=== PATIENT | male | born 2000 | race Caucasian/White ===

== ENCOUNTER 2020-09-06 02:27 | Emergency (ER) | payer OTHER, SELFPAY ==
[2020-09-06 02:33] VITALS: BP 124/57; PULSE 79; RESP 18; TEMP 36.2; O2SAT 100
--- NOTE | 2020-09-06 02:35 | ED.NAVMDI ---
HPI - Nausea/Vomiting/Diarrhea General Chief complaint: Nausea/Vomiting/Diarrhea Stated complaint: vomiting Time Seen by Provider: 09/06/20 02:34 History of Present Illness HPI Narrative: Previously healthy 19 yo male presents to the ED for nausea and vomiting. He reports acute nausea and vomiting starting about 3 hours ago. This was later accompanied by profuse watery diarrhea and mild cramping. No fever. Related Data Allergies Allergy/AdvReac Type Severity Reaction Status Date / Time No Known Allergies Allergy Verified 09/06/20 02:43 Review of Systems Review of Systems: All systems reviewed & are unremarkable except as noted in HPI and below Constitutional: Constitutional: Denies chills and Denies fever(s) ENT: Reports dizziness Cardiovascular: Cardiovascular: Denies chest pain Respiratory: Respiratory: Denies dyspnea Gastrointestinal: Gastrointestinal: Reports as per HPI Neurologic: Denies confusion PMFSH Social History Social History Smoking status: Never smoker Exam Const: General: healthy appearing, no acute distress and alert Nutritional Appearance: well nourished Orientation/consciousness: patient oriented x3 HENMT: Head: normal to inspection Resp: Effort & Inspection: normal respiratory effort Auscultation: clear to auscultation bilaterally Cardio: Rate: regular rate Rhythm: regular rhythm GI: Inspection: non-distended GI Palp: Yes Soft to palpation and No Tenderness to palpation present (GI) Auscultation: Hyperactive bowel sounds present Skin: General skin exam: normal color Neuro: General: patient oriented x3 and moves all extremities Speech: normal speech Extrem: General: normal to inspection Course Vital Signs Vital signs: Vital Signs Temperature 36.2 C L 09/06/20 02:33 Pulse Rate 79 09/06/20 02:33 Respiratory Rate 18 09/06/20 02:33 Blood Pressure 124/57 L 09/06/20 02:33 Pulse Oximetry 100 09/06/20 02:33 Temperature 36.2 C L 09/06/20 02:33 Pulse Rate 80 09/06/20 03:46 Respiratory Rate 16 09/06/20 03:46 Blood Pressure 133/69 09/06/20 03:46 Pulse Oximetry 100 09/06/20 03:46 MDM - Nausea/Vomiting/Diarrhea MDM Narrative Medical decision making narrative: Feeling better and tolerating water PO. Differential Diagnosis Differential diagnosis: Likely gastroenteritis and dehydration Medical Records Attestation: I reviewed the patient's medical records. Lab Data Attestation: I reviewed the patient's lab results. Result diagrams: 09/06/20 03:02 09/06/20 03:02 Labs: Lab Results 09/06/20 09/06/20 Range/Units 03:02 03:02 WBC 10.2 H (4.5-10.0) K/mm3 RBC 5.37 (4.6-6.20) M/mm3 Hgb 16.3 (14.0-18.0) g/dL Hct 46.6 (42.0-52.0) % MCV 86.8 (80-100) fl MCH 30.4 (26-34) pg MCHC 35.0 (32-36) g/dl RDW 11.7 (11.5-14.5) % Plt Count 185 (150-375) k/mm3 MPV 9.9 (7.4-10.4) fl Immature Gran % (Auto) 0.3 (0-0.5) % Neut % (Auto) 90.9 H (45.5-73.1) % Lymph % (Auto) 3.1 L (18.3-44.2) % [place] % (Auto) 4.6 (2.6-8.5) % Eos % (Auto) 0.7 (0-4.4) % Baso % (Auto) 0.4 (0.2-1.2) % Lymph # (Auto) 0.32 L (0.9-3.2) K/mm3 [place] # (Auto) 0.5 (0.1-0.6) K/mm3 Eos # (Auto) 0.1 (0-0.3) K/mm3 Baso # (Auto) 0.0 (0.0-0.1) K/mm3 Abs Immat Gran (auto) 0.03 (0.00-0.031) K/mm3 Absolute Neuts (auto) 9.2 H (1.3-6.7) K/mm3 Absolute Nucleated RBC 0.0 (0.0-0.012) K/mm3 Nucleated RBC % 0.0 (0.0-0.2) % Sodium 138 (137-145) mmol/L Potassium 3.9 (3.4-5.0) mmol/L Chloride 106 (98-107) mmol/L Carbon Dioxide 25 (22-30) mmol/L Anion Gap 7 L (8-16) mmol/L BUN 22 H (9-20) mg/dL Creatinine 1.00 (0.7-1.3) mg/dL Estim Creat Clear Calc 123 ml/min Estimated GFR > 60 (59 - ) Glucose 131 H (75-110) mg/dL Calcium 9.3 (8.4-10.2) mg/dL Total Bilirubin 0.8 (0.2-1.3) mg/dL AST
[2020-09-06] MEDS: ONDANSETRON INJ 4 MG/2 ML VIAL IV PUSH (03:01)
[2020-09-06] MEDS: SODIUM CHLORIDE 0.9% IV 2,000 ML 999 ML IV CONT (03:01)
[2020-09-06] MEDS: diphenhydrAMINE HCl INJ 50 MG/ML VIAL 25 MG IV PUSH (03:01)
[2020-09-06 03:10] LABS: Basophils Percent Auto 0.4 % (0.2-1.2); Eosinophils Absolute Auto 0.1 K/mm3 (0-0.3); Eosinophils Percent Auto 0.7 % (0-4.4); Hematocrit 46.6 % (42.0-52.0); Hemoglobin 16.3 g/dL (14.0-18.0); Immature Granulocyte Absolute 0.03 K/mm3 (0.00-0.031); Immature Granulocyte Percent A 0.3 % (0-0.5); Lymphocytes Absolute Auto 0.32 K/mm3 (0.9-3.2); Lymphocytes Percent Auto 3.1 % (18.3-44.2); Mean Corpuscular Hemoglobin 30.4 pg (26-34); Mean Corpuscular Volume 86.8 fl (80-100); Mean Platelet Volume 9.9 fl (7.4-10.4); Monocytes Absolute Auto 0.5 K/mm3 (0.1-0.6); Monocytes Percent Auto 4.6 % (2.6-8.5); Neutrophils Absolute Auto 9.2 K/mm3 (1.3-6.7); Neutrophils Percent Auto 90.9 % (45.5-73.1); Platelet Count Result 185 k/mm3 (150-375); Red Blood Count 5.37 M/mm3 (4.6-6.20); Red Cell Distribution Width 11.7 % (11.5-14.5); White Blood Count 10.2 K/mm3 (4.5-10.0)
[2020-09-06 03:40] LABS: Alanine Aminotransferase 53 U/L (4-50); Albumin Level 4.7 g/dL (3.5-5.1); Alkaline Phosphatase 77 U/L (38-126); Anion Gap 7 mmol/L (8-16); Aspartate Amino Transferase 104 U/L (17-59); Bilirubin,Total 0.8 mg/dL (0.2-1.3); Blood Urea Nitrogen 22 mg/dL (9-20); Calcium 9.3 mg/dL (8.4-10.2); Carbon Dioxide 25 mmol/L (22-30); Chloride 106 mmol/L (98-107); Estimated CRCL calculation 123 ml/min; Estimated Glomerular Filt Rate > 60; Glucose 131 mg/dL (75-110); Lipase 55 U/L (23-300); Potassium 3.9 mmol/L (3.4-5.0); Sodium 138 mmol/L (137-145)
[2020-09-06 03:46] VITALS: BP 133/69; PULSE 80; RESP 16; O2SAT 100
[2020-09-06 04:23] VITALS: BP 137/44; PULSE 69; RESP 20; O2SAT 100
== END 2020-09-06 04:25 | disposition home or self-care (01) ==
PROVIDERS: Emergency Provider Emergency Medicine; PCP Family Medicine
DX: K52.9 Noninfective gastroenteritis and colitis, unspecified (principal)
CPT/HCPCS: 36415; 80053; 83690; 85025; 96361; 96374; 96375; 99284; J1200; J2405; J7030

== ENCOUNTER 2020-12-01 13:49 | Emergency (ER) | payer OTHER, SELFPAY ==
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
[2020-12-01 13:58] VITALS: BP 146/76; PULSE 70; RESP 16; TEMP 37.3; O2SAT 99
--- NOTE | 2020-12-01 15:22 | PC.NURSE ---
Pt in radiology.
[2020-12-01] MEDS: KETOROLAC 30 MG/ML VIAL (*BKC) IV PUSH (15:30)
[2020-12-01] MEDS: LORazepam INJ (*CRX) 2 MG/ML VIAL 1 MG IV PUSH (15:31)
[2020-12-01 16:21] VITALS: PULSE 62; RESP 15; O2SAT 98
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
[2020-12-01 18:13] VITALS: BP 136/68; PULSE 60; RESP 15; O2SAT 99
== END 2020-12-01 18:15 | disposition home or self-care (01) ==
PROVIDERS: Emergency Provider Emergency Medicine
DX: M54.2 Cervicalgia (principal); R51.9 Headache, unspecified; V43.52XA Car driver injured in collision with other type car in traffic accident, initial encounter
CPT/HCPCS: 70450; 71046; 72125; 96374; 96375; 99284; J1885; J2060; L0140

== ENCOUNTER 2021-06-26 15:45 | Emergency (ER) | payer OTHER, SELFPAY ==
[2021-06-26 15:53] VITALS: BP 145/82; PULSE 86; RESP 18; TEMP 36.7; O2SAT 98
--- NOTE | 2021-06-26 15:53 | ED.URI ---
HPI - URI/Sore Throat General Chief Complaint: Upper Respiratory Infection Stated Complaint: Congestion, Ear ache and cough Time Seen by Provider: 06/26/21 16:02 Source: patient and RN notes reviewed Mode of arrival: ambulatory Limitations: no limitations History of Present Illness HPI Narrative: 20-year-old male presents with concern for cough, shortness of breath with exertion, ear pain, fatigue, head congestion. Reports symptoms started 4 days ago. He denies any history of asthma or other breathing problems. He reports trying DayQuil and NyQuil which offer relief of nasal congestion. He denies any trouble breathing, MD elicited complaint: cough, rhinorrhea and nasal congestion Related Data Home Medications Medication Instructions Recorded Confirmed No Home Medications 12/01/20 06/26/21 Allergies Allergy/AdvReac Type Severity Reaction Status Date / Time No Known Allergies Allergy Verified 06/26/21 15:55 Review of Systems Review of Systems: CONSTITUTIONAL: Reports malaise, fatigue. Denies chills, sweats, or fever. EYES: Denies visual changes, redness, or discharge. ENT: Reports rhinorrhea, congestion, otalgia CARDIOVASCULAR: Denies chest pain, palpitations, or edema. RESPIRATORY: Reports cough, exertional dyspnea. GASTROINTESTINAL: Denies abdominal pain, nausea, vomiting, diarrhea SKIN: Denies rash or itching. MUSCULOSKELETAL: Reports myalgia. NEUROLOGIC: Denies headache. All systems reviewed & are unremarkable except as noted in HPI and below PMFSH Social History Social History Smoking status: Never smoker Comments At time of signature, agree with nursing past medical, surgical, social and family history. There is no relevant family history pertinent to the presenting complaint Exam Narrative: GENERAL: Well-appearing, well-nourished, and in no acute distress. HEAD: Normocephalic EYES: PERRLA, conjunctivae clear ENT: Nares clear, clear discharge. Mucous membranes moist. TM pearly moreno with dull light reflex bilaterally; no tragal tenderness. Oropharynx not erythematous without lesions. Tonsils not enlarged and without exudate, no drooling, no hoarseness, no trismus, uvula midline. NECK: Supple. No lymphadenopathy CHEST: Scattered wheeze, otherwise clear to auscultation, breath sounds equal. No rhonchi, rales, or stridor. No respiratory distress, speaks in full sentences. HEART: Regular rate and rhythm. No murmur heard. SKIN: Warm, dry, no rash. NEURO: Alert and oriented x3. PSYCH: Normal mood and affect Course Course Emergency Course: Patient is aware of diagnosis, understands and agrees to treatment plan. Anticipatory guidance given. Patient agrees to follow-up as directed and is aware of reasons to seek care at the emergency department. Portions of this record may have been created with voice recognition software Level of Care: Express Care Visit Vital Signs Vital signs: Reviewed. MDM - URI/Sore Throat MDM Narrative Medical decision making narrative: Differential diagnosis considered: [place] virus, strep pharyngitis, allergic rhinitis, upper respiratory tract infection, sinusitis, rhinosinusitis, nasopharyngitis. viral pharyngitis, otitis media, otitis externa, pneumonia, bronchitis, viral cough syndrome, viral syndrome, and influenza. Exam findings show no acute concerns or changes; patient is non-toxic appearing and is in no distress. Patient is appropriate for outpatient treatment and follow-up. Lab Data Attestation: I reviewed the patient's lab results. Critical Care Time Critical Care Time Critical Care Time: No Discharge Plan Discharge Clinical Impression: Bronchitis Patient Disposition: Home, Self-Care Condition: Stable Instructions: Acute Bronchitis (ED) Additional Instructions: Viral illness may last between 7-21 days; antibiotics do not cure viral illness and are NOT recommended at this time. Recommend antihistami
== END 2021-06-26 16:41 | disposition home or self-care (01) ==
PROVIDERS: Emergency Provider Nurse Practitioner
DX: J40 Bronchitis, not specified as acute or chronic (principal); Z20.822 Contact with and (suspected) exposure to COVID-19
CPT/HCPCS: 87426; 87804; 99213; C9803; G0463

== ENCOUNTER 2021-12-28 12:58 | Emergency (ER) | payer OTHER, SELFPAY ==
[2021-12-28 13:03] VITALS: BP 144/84; PULSE 91; RESP 20; TEMP 36.2; O2SAT 99
--- NOTE | 2021-12-28 13:25 | ED.EAR ---
HPI - Ear Problem General Chief complaint: Ear Stated complaint: ear pain Time Seen by Provider: 12/28/21 13:00 History of Present Illness HPI Narrative: 21-year-old male presents to the emergency room today for complaints of right ear pain. He is also having a headache on the right side as well sinus congestion, drainage and cough. He has had upper respiratory symptoms for the past week. The ear pain started today. He does report being on antibiotics recently. No fever or chills. No shortness of breath or wheezing. No nausea vomiting or diarrhea. Related Data Allergies Allergy/AdvReac Type Severity Reaction Status Date / Time No Known Allergies Allergy Verified 06/26/21 15:55 Review of Systems Review of Systems: CONSTITUTIONAL: Denies fever, chills, or sweats. EYES: mild blurred vision right eye ENT: As per HPI CARDIOVASCULAR: Denies chest pain, palpitations, or edema. RESPIRATORY: Denies cough or dyspnea. GASTROINTESTINAL: Denies abdominal pain, nausea, vomiting, or diarrhea. GENITOURINARY: Denies dysuria or hematuria. SKIN: Denies rash or itching. MUSCULOSKELETAL: Denies back pain, joint pain, or myalgia. NEUROLOGIC: Denies headache, numbness, dizziness, or weakness. PSYCHIATRIC: Denies anxiety or depression. [facility] Social History Social History Smoking status: Never smoker Exam Narrative: GENERAL: Well-appearing, well-nourished, and in no acute distress. HEAD: Normocephalic, atraumatic. EYES: PERRLA and EOMI. ENT: Bilateral TMs erythematous and bulging. Effusion noted bilaterally. Clear nasal drainage with congestion noted. Oropharynx appears normal, no erythema or exudates. NECK: Supple. No adenopathy or masses. No carotid bruits or JVD CHEST: Clear to auscultation. No respiratory distress. No wheezes rales or rhonchi HEART: Regular rate and rhythm. No murmur heard. Normal peripheral pulses. EXTREMITIES: Normal range of motion. No edema. SKIN: Warm, dry, no rash. NEURO: No focal deficits. Alert and oriented x3. PSYCH: Normal mood and affect. Course Vital Signs Vital signs: Vital Signs Temperature 36.2 C L 12/28/21 13:03 Pulse Rate 91 12/28/21 13:03 Respiratory Rate 12/28/21 13:03 Blood Pressure 144/84 H 12/28/21 13:03 Pulse Oximetry 99 12/28/21 13:03 Temperature 36.2 C L 12/28/21 13:03 Pulse Rate 91 12/28/21 13:03 Respiratory Rate 12/28/21 13:03 Blood Pressure 144/84 H 12/28/21 13:03 Pulse Oximetry 99 12/28/21 13:03 Medical Decision Making Vital Signs Vital Signs: Vital Signs Temperature 36.2 C L 12/28/21 13:03 Pulse Rate 91 12/28/21 13:03 Respiratory Rate 12/28/21 13:03 Blood Pressure 144/84 H 12/28/21 13:03 Pulse Oximetry 99 12/28/21 13:03 Temperature 36.2 C L 12/28/21 13:03 Pulse Rate 91 12/28/21 13:03 Respiratory Rate 12/28/21 13:03 Blood Pressure 144/84 H 12/28/21 13:03 Pulse Oximetry 99 12/28/21 13:03 Discharge Plan Discharge Clinical Impression: Acute bacterial sinusitis Otitis media Qualifiers: Otitis media type: suppurative Chronicity: acute Laterality: bilateral Recurrence: not specified as recurrent Spontaneous tympanic membrane rupture: without spontaneous rupture Qualified Code(s): H66.003 - Acute suppurative otitis media without spontaneous rupture of ear drum, bilateral Patient Disposition: Home, Self-Care Condition: Stable Instructions: Antibiotic Form, Ear Infection (ED) Additional Instructions: Use [id number] Tylenol or Motrin as needed. Use [id number] decongestants as needed. Take your full course of antibiotics as directed. Follow-up with your primary care provider in 2 to 3 days for recheck. Prescriptions: New amoxicillin-pot clavulanate 875-125 mg tablet 1 tablet PO Q12H 10 Days Qty: 20 0RF ibuprofen 600 mg tablet 600 mg PO TID PRN (Reason: pain) Qty: 30 0RF No Action
[2021-12-28] MEDS: cefTRIAXone 1 GM VIAL IM (13:44)
[2021-12-28] MEDS: KETOROLAC (*BKC) 60 MG/2 ML VIAL IM (13:45)
[2021-12-28] MEDS: LIDOCAINE HCL 1% PF 30 ML VIAL INFILTRATE (13:45)
== END 2021-12-28 14:07 | disposition home or self-care (01) ==
PROVIDERS: Emergency Provider Nurse Practitioner Family
DX: J01.90 Acute sinusitis, unspecified (principal); Z79.51 Long term (current) use of inhaled steroids
CPT/HCPCS: 96372; 99284; J0696; J1885

== ENCOUNTER 2022-04-11 10:38 | Emergency (ER) | payer OTHER, SELFPAY ==
[2022-04-11 10:50] VITALS: BP 133/75; PULSE 95; RESP 16; TEMP 39.1; O2SAT 98
--- NOTE | 2022-04-11 11:20 | ED.URI ---
HPI - URI/Sore Throat General Chief Complaint: Upper Respiratory Infection Stated Complaint: Cold/flu Time Seen by Provider: 04/11/22 11:20 Source: patient and RN notes reviewed Mode of arrival: ambulatory Limitations: no limitations History of Present Illness HPI Narrative: 21-year-old male presented for complaint headache, body aches, sinus pressure/congestion, cough, fatigue, fever/chills. Endorses feeling dizzy at times, decreased appetite and intermittent diarrhea. Temp up to 102.2 last night. Taking several otc meds without change in symptoms. States his girlfriend has similar symptoms and tested positive for covid at home last week. MD elicited complaint: cough Related Data Home Medications Medication Instructions Recorded Confirmed fluoxetine 10 mg capsule 40 mg PO DAILY 04/11/22 04/11/22 Allergies Allergy/AdvReac Type Severity Reaction Status Date / Time No Known Allergies Allergy Verified 04/11/22 11:18 Review of Systems Review of Systems: per HPI [facility] Social History Social History Smoking status: Never smoker Exam Narrative: GENERAL: Ill-appearing, nontoxic HEAD: Normocephalic EYES: PERRLA, conjunctivae clear ENT: Mucous membranes moist. TMs pearly moreno with dull light reflex bilaterally; no tragal tenderness. Oropharynx erythematous tonsils absent, without lesions or exudate, no drooling, no hoarseness, no trismus, uvula midline. No tripod positioning, muffled voice, soft palate or pharyngeal wall bulging NECK: Supple. No lymphadenopathy CHEST: Clear to auscultation, breath sounds equal. No wheezing, rhonchi, rales, or stridor. No respiratory distress, speaks in full sentences. HEART: Regular rate and rhythm. No murmur heard. SKIN: Warm, dry, no rash. NEURO: Alert and oriented x3. PSYCH: Normal mood and affect Course Course Emergency Course: Patient is aware of diagnosis, understands and agrees to treatment plan. Anticipatory guidance given. Patient agrees to follow-up as directed and is aware of reasons to seek care at the emergency department. Portions of this record may have been created with voice recognition software Level of Care: Express Care Visit Vital Signs Vital signs: Vital Signs Temperature 102.4 F H 04/11/22 10:50 Pulse Rate 95 04/11/22 10:50 Respiratory Rate 16 04/11/22 10:50 Blood Pressure 133/75 04/11/22 10:50 Pulse Oximetry 98 04/11/22 10:50 Temperature 100.9 F H 04/11/22 12:15 Pulse Rate 98 04/11/22 12:15 Respiratory Rate 16 04/11/22 12:15 Blood Pressure 133/75 04/11/22 10:50 Pulse Oximetry 99 04/11/22 12:15 Oxygen Delivery Room Air 04/11/22 12:15 reviewed MDM - URI/Sore Throat MDM Narrative Medical decision making narrative: temp rechecked, improved. covid and strep result reviewed with pt Advised supportive measures and signs/symptoms to go to the ER. Pt is appropriate for outpt treatment and f/u. Differential Diagnosis Differential diagnosis: Likely upper respiratory infection, sinusitis and viral infection Lab Data Labs: Lab Results 04/11/22 Range/Units 10:50 POC SARS CoV-2 Ag Negative (Negative) Strep Screen Positive Group A Strep *(Reference Range: Negative)* Discharge Plan Discharge Clinical Impression: Strep pharyngitis Patient Disposition: Home, Self-Care Condition: Stable Instructions: Antibiotic Form, Strep Throat (ED) Additional Instructions: - Take the antibiotic as directed. Fever and sore throat typically resolve within one to three days. Most patients can return to work, after 12 to 24 hours of antibiotic therapy, provided you are fever free and otherwise well. -Eat and drink things that are easy to swallow, like soft foods, cool liquids, tea with honey, or popsicles . -Salt water gargles and/or may use topical anesthetic ( Chloraseptic spray) or lozenges
--- NOTE | 2022-04-11 11:47 | PC.NURSE ---
ADVISED PT TO REMOVE LAYERS OF CLOTHING AND HATS AT THIS TIME.
[2022-04-11 12:15] VITALS: PULSE 98; RESP 16; TEMP 38.3; O2SAT 99
== END 2022-04-11 12:15 | disposition home or self-care (01) ==
PROVIDERS: Emergency Provider Nurse Practitioner Family
DX: J02.0 Streptococcal pharyngitis (principal); Z20.822 Contact with and (suspected) exposure to COVID-19
CPT/HCPCS: 87426; 87880; 99213; C9803; G0463

== ENCOUNTER 2024-08-12 13:39 | Emergency (ER) | payer SELFPAY ==
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
--- NOTE | ~2024-08-12 | CT_ITS ---
EXAMINATION: CT brain wo con DATE: 08/12/2024 14:05 INDICATION: Head injury TECHNIQUE: Computed tomography (CT) of the head was performed without intravenous contrast. Sagittal and coronal reconstructions were performed. The mA was adjusted according to patient size. Iterative reconstruction technique was employed. The dose-length product was 681.00 mGy-cm. COMPARISON: 12/01/2020 FINDINGS: No fracture. No acute intracranial hemorrhage, acute infarction or abnormal extra axial fluid collect ion. Ventricles are normal and symmetric. No mass/mass effect. The orbits, paranasal sinuses and mast oid air cells are normal. IMPRESSION: 1. Normal head CT. No fracture or acute intracranial process. Reviewed, dictated and finalized at location B.
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
[2024-08-12 13:51] VITALS: BP 135/77; PULSE 69; RESP 18; TEMP 36.4; O2SAT 98
--- OUTSIDE RECORDS SUMMARY | 2024-08-12 14:30 | XMS_ITS | Encounter Summary ---
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
--- OUTSIDE RECORDS SUMMARY | 2024-08-12 14:30 | XMS_ITS | Clinical Summary ---
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 Gender Identity Not on file Sexual Orientation Not on file Last Filed Vital Signs Vital Sign Reading Time Taken Comments Blood Pressure 139/76 10/31/2019 5:44 PM CDT Pulse 74 10/31/2019 5:44 PM CDT Temperature 36.4 C (97.5 F) 10/31/2019 5:44 PM CDT Respiratory Rate 18 10/31/2019 5:44 PM CDT Oxygen Saturation 98% 10/31/2019 5:44 PM CDT Inhaled Oxygen Concentration - - Weight 89.4 kg (197 lb 1.5 oz) 10/31/2019 5:44 P M CDT Height 190.5 cm (6' 3 ) 10/31/2019 5:44 PM CDT Body Mass Index 24.63 10/31/2019 5:44 PM CDT Plan of Treatment Health Maintenance Due Date Last Done Comments Annual Physical 2001 HPV Vaccines (1 - Male 3-dos e series) 2013 DTaP, Tdap and Td Vaccines ( 1 - Tdap) 2017 Hepatitis B Vaccines (1 of 3 - 19+ 3-dose series) 2017 COVID-19 Vaccine (2023-2 5 season) 2023 Hepatitis C Completed 05/31/2019 Meningococcal Vaccine Aged Out 10/13/2019 No lisha yunior eligible based on patient's age to complete this topic Meningococcal B Vaccine Aged Out No l onger eligible based on patient's age to complete this topic Pneumococcal Vaccine: Pediat rics (0 to 5 Years) and At-Risk Patients (6 to 49 Years) Aged Out No longer eligi ble based on patient's age to complete this topic RSV Immunizations Under 20 Months Aged Out No longer eligible based on patient's age to complete this topic Procedures Procedure Name Priority Date/Time Associated Diagnosis Comments HEPATITIS PANEL,ACUTE STAT 05/31/2019 3:25 PM TOOL PROCUREMENT COORDINATOR from Last 3 Months or Most Recently Relevant to Health Maintenance Results * HEPATITIS PANEL,ACUTE (05/31/2019 3:25 PM TOOL PROCUREMENT COORDINATOR) HEPATITIS B SURFACE AG NON-REACT GARY NON-REACT GARY 05/31/2019 6:28 PM TOOL PROCUREMENT COORDINATOR [facility] Comment:HBsAg NOT DETECTED. HEP B CORE IGM NON-REACT GARY NON-REACT GARY 05/31/2019 6:28 PM TOOL PROCUREMENT COORDINATOR [facility] Comment: IgM ANTI HBc NOT DETECTED. DOES NOT EXCLUDE THE POSSIBILITY OF EXPOSURE TO OR INFECTION WITH HBV. NO RETEST REQUIRED. HIGH DOSES OF BIOTIN MAY INTERFERE WITH THIS TEST RESULT. CORRELATION TO CLINICAL HISTORY AND PRESENTATION RECOMMENDED. HAV IGM NON-REACT GARY NON-REACT GARY 05/31/2019 6:28 PM TOOL PROCUREMENT COORDINATOR [facility] Comment: IgM ANTI HAV NOT DETECTED. DOES NOT EXCLUDE THE POSSIBILITY OF EXPOSURE TO OR INFECTION WITH HAV. LEVELS OF IgM ANTI HAV MAY BE BELOW THE CUTOFF IN EARLY INFECTION. HEPATITIS C AB NON-REACT GARY NON-REACT GARY 05/31/2019 6:28 PM TOOL PROCUREMENT COORDINATOR [facility] Comment: ANTIBODIES TO HCV NOT DETECTED. DOES NOT EXCLUDE THE POSSIBILITY OF EXPOSURE TO HCV. 05/31/2019 3:25 PM TOOL PROCUREMENT COORDINATOR Ghada Dwyer [facility] F inal Result [facility] [address] [place] [address], [id number] from Last 3 Months or Most Recently Relevant to Health Maintenance Insurance Care Teams Legal Service Specialist Relationship Specialty Start Date End Date Cricket Larson MD [address] [place] [id number] PCP - General FAMILY PRACTICE 05/26/19
--- OUTSIDE RECORDS SUMMARY | 2024-08-12 14:30 | XMS_ITS | Clinical Summary ---
Author Organization [facility] Address [address] Duong: Epic Prelude ADT [place] [address] Care Team Providers Care Liner Man Name Role Phone Unavailable Primary Care Provider Unavailabl e Encounters Date Type Department Care Team Description 07/01/[address] [facility] Services [address] [place] [address] 07/01/[address] [facility] [address] [place] [address] Ghada Galvez DO from Last 3 Months Immunizations Immunization Administration Dates Next Due Influenza Seasonal Unspecified Formulation IM Social History Tobacco Use Types Packs/Day Years Used Date Smoking Tobacco: Never Assessed Sex and Gender Information Value Date Recorded Sex Assigned at Not on file Legal Sex Male 6:00 PM CDT Gender Identity Not on file Sexual Orientation Not on file Plan of Treatment Health Maintenance Due Date Last Done Comments HPV VACCINES (1 - Male 3-dose series) 2013 DTAP/TDAP/TD VACCINES (1 - Tdap) 2017 HEPATITIS B VACCINES (1 of 3 - 19+ 3-dose series) 11/13 INFLUENZA VACCINE Completed 12/19/2023 Procedures Procedure Name Priority Date/Time Associated Diagnosis Comments EXTRA TUBE (SST/GOLD) Routine 06/30/2024 5:15 PM CDT EXPOSURE PANEL COMPLETION Stat 06/30/2024 5:15 PM CDT HEPATITIS C ANTIBODY Stat 06/30/2024 5:15 PM CDT HIV DETECTION W/REFLX CONFIRMATION Stat 06/30/2024 5:15 PM CDT EXPOSED NEEDLESTICK PANEL Stat 06/30/2024 5:15 PM CDT from Last 3 Months Results * EXPOSURE PANEL COMPLETION (06/30/2024 5:15 PM CDT) [facility] EXPOSURE PANEL RECEIVED Yes 07/01/2024 9:57 AM CDT [facility] [employer] [facility] Blood Collection / Unknown 06/30/2024 5:15 PM CDT 07/01/2024 9:53 AM CDT Ghada Galvez DO CHEMISTRY ORDERABLES Final Result [facility] [employer] [facility] CLIA# [id number] [address] [place] [address] * EXTRA TUBE (SST/GOLD) (06/30/2024 5:15 PM CDT) Blood 06/30/2024 5:15 PM CDT 07/01/2024 9:56 AM CDT [facility] CHEMISTRY ORDERABLES Final Result Performing Organization Address [facility]/ZIP Co de Phone Number [facility] CLIA# [id number] [place] [address] * HIV DETECTION W/REFLX CONFIRMATION (06/30/2024 5:15 PM CDT) [facility] HIV-1 AND 2 ABS AND HIV-1 AG Non-reacti ve Non-reacti ve 07/01/2024 3:29 PM CDT [facility] [employer] [facility] Blood Collection / Unknown 06/30/2024 5:15 PM CDT 07/01/2024 9:53 AM CDT [facility] Gal[facility] DO CHEMISTRY ORDERABLES Final Result Performing Organization Address City/[facility]/ZIP Co de Phone Number [facility] [employer] [facility] CLIA# [id number] [address] [place] [address] * HEPATITIS C ANTIBODY W REFLEX (06/30/2024 5:15 PM CDT) HEPATITIS C AB NON-REACT ANNCI Non-react nanci 07/01/2024 1:21 PM CDT [facility]ORATORY SERVICES [facility] Comment:Antibodies to HCV we re not detected, does not exclude the possibility of exposure to HCV. Blood Collection / Unknown 06/30/2024 5:15 PM CDT 07/01/2024 9:53 AM CDT us Ghada Galvez DO CHEMISTRY ORDERABLES Final Result [facility] [employer] [facility] CLIA# [id number] [place] [address] from Last 3 Months Insurance [facility] [employer]
--- OUTSIDE RECORDS SUMMARY | 2024-08-12 14:30 | XMS_ITS | Encounter Summary ---
Author Organization [facility] Address [address] [place] [address] Care Team Providers Care Program Consultant Name Role Phone Unavailable Primary Care Provider Unavailabl e Encounter Details Date Type Department Care Team (Late st Contact Info) Description 07/01/2024 Lab Requisition [facility] Services [address] [place] [address] [place] [address] [place] [address] Social History Tobacco Use Types Packs/Day Years Used Date Smoking Tobacco: Never Assessed Sex and Gender Information Value Date Recorded Sex Assigned at Not on file Legal Sex Male 6:00 PM CDT Gender Identity Not on file Sexual Orientation Not on file documented as of this encounter Plan of Treatment Not on file documented as of this encounter Procedures Procedure Name Priority Date/Time Associated Diagnosis Comments EXPOSURE PANEL COMPLETION Stat 06/30/2024 5:15 PM CDT EXPOSED NEEDLESTICK PANEL Stat 06/30/2024 5:15 PM CDT EXTRA TUBE (SST/GOLD) Routine 06/30/2024 5:15 PM CDT HIV DETECTION W/REFLX CONFIRMATION Stat 06/30/2024 5:15 PM CDT HEPATITIS C ANTIBODY Stat 06/30/2024 5:15 PM CDT documented in this encounter Results * EXTRA TUBE (SST/GOLD) (06/30/2024 5:15 PM CDT) Blood 06/30/2024 5:15 PM CDT 07/01/2024 9:56 AM CDT Ghada Galvez DO CHEMISTRY ORDERABLES Final Result Performing Organization Address City/[facility]/ZIP Co de Phone Number [facility] CLIA# [id number] [place] [address] * EXPOSURE PANEL COMPLETION (06/30/2024 5:15 PM CDT) [facility] EXPOSURE PANEL RECEIVED Yes 07/01/2024 9:57 AM CDT [facility] Blood Collection / Unknown 06/30/2024 5:15 PM CDT 07/01/2024 9:53 AM CDT Ghada Leonor [place] CHEMISTRY ORDERABLES Final Result Performing Organization Address [facility]UST Co de [id number] [place] [address] * HEPATITIS C ANTIBODY W REFLEX (06/30/2024 5:15 PM CDT) [facility] HEPATITIS C AB NON-REACT NANCI Non-react nanci 07/01/2024 1:21 PM CDT [facility] Comment:Antibodies to HCV we re not detected, does not exclude the possibility of exposure to HCV. Blood Collection / Unknown 06/30/2024 5:15 PM CDT 07/01/2024 9:53 AM CDT Ghada Leonor [place] CHEMISTRY ORDERABLES Final Result Performing Organization Address City/[facility]/ZIP Co de Phone Number [facility] [employer] [facility] CLIA# [id number] [address] [place] [address] * HIV DETECTION W/REFLX CONFIRMATION (06/30/2024 5:15 PM CDT) [facility] HIV-1 AND 2 ABS AND HIV-1 AG Non-reacti ve Non-reacti ve 07/01/2024 3:[address] [facility] Blood Collection / Unknown 06/30/2024 5:15 PM CDT 07/01/2024 9:53 AM CDT Ghada Galvez DO CHEMISTRY ORDERABLES Final Result Performing Organization Address [facility]/[place] Co de Phone Number [facility]# [id number] [address] [place] [address] documented in this encounter Visit Diagnoses Not on filedocumented in this encounter
--- OUTSIDE RECORDS SUMMARY | 2024-08-12 14:30 | XMS_ITS | Encounter Summary ---
Author Organization Address [address] [place] [address] Care Team Providers Care Footwear Sales Associate Name Role Phone Unavailable Primary Care Provider Unavailabl e Encounter Details Date Type Department Care Team (Late st Contact Info) Description 07/01/2024 Lab Requisition [facility] Laboratory Services [address] [place] [address] Social History Tobacco Use Types Packs/Day Years [...]
--- OUTSIDE RECORDS SUMMARY | 2024-08-12 14:30 | XMS_ITS | Referral Summary ---
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 Name Role Phone Lilian Anthony MD Primary Care Provider Encounters Date Type Department Care Team Description 06/22/2024 Telephone Family Care at [address] [phone] Lilian Anthony MD Appointment/Schedules 06/18/2024 7:00 AM JOB COUNSELOR Telemedicine Family Care at [address] [phone] Lilian Anthony MD Anxiety (Primary Dx); Obsessive-compulsive disorder, unspecified type; Cold-induced asthma, mild intermittent, uncomplicated 06/01/2024 Results Follow-Up [facility] Primary Care - [address], [place] [address] Lilian Anthony MD 05/27/2024 11:22 AM JOB COUNSELOR - 05/27/2024 11:59 PM JOB COUNSELOR Hospital Encounter [address] [address] Rectal bleeding; Abdominal pain Discharge Disposition: Discharge to home or self care 05/27/2024 11:15 AM JOB COUNSELOR Lab [facility] Medical Group Outpatient Lab at [address] [phone] 05/27/2024 8:55 AM JOB COUNSELOR - 05/27/2024 11:59 PM JOB COUNSELOR Hospital Encounter [address] [address] [place] [address] Rectal bleeding; Abdominal pain Discharge Disposition: Discharge to home or self care 05/19/2024 2:15 PM JOB COUNSELOR Lab [address] [phone] Rectal bleeding; Syncope, unspecified syncope type 05/19/2024 1:00 PM JOB COUNSELOR Office Visit [facility] Medical [facility] Primary Care [facility] [id number] [place] [address] [address] [place] [address] Lilian Anthony MD Syncope, unspecified syncope type (Primary Dx); Rectal bleeding; Abdominal pain; Nausea and vomiting, unspecified vomiting type from Last 3 Months Allergies No known active allergies Medications albuterol HFA (PROVENTIL HFA,VENTOLIN HFA,PROAIR HFA) 90 mcg/actuation inhalerIndicatio ns:Upper respiratory tract infection, unspecified type Inhale 2 puffs every 6 (six) hours as needed for wheezing 1 each 3 Active cetirizine (ZyrTEC) 10 mg tablet Take 1 tablet (10 mg total) by mouth daily Active FLUoxetine (PROzac) 40 mg capsuleIndicatio ns:Mixed obsessional thoughts and acts Take 1 capsule (40 mg total) by mouth daily 30 capsule 4 Active Active Problems Problem Noted Date Diagnosed Date Allergies 06/18/2024 Assessment & Plan (06/18/2024 7:33 AM JOB COUNSELOR): Chronic Environmental and cat hair Does well with PRN Zyrtec Continue present managment Cold-induced asthma, mild intermittent, uncompli cated 06/18/2024 Assessment & Plan (06/18/2024 7:39 AM JOB COUNSELOR): Chronic If Patient exercises in the cold, he has wheezing and shortness of breath Better with PRN Albuterol Syncope 05/19/2024 Assessment & Plan (05/19/2024 1:52 PM JOB COUNSELOR): Subacute, recurrent Neuro exam grossly normal Likely vasovagal Hx of seizures in childhood - neuro cause considered - CT ordered Patient reports feeling palpitations - holter and EKG ordered Labs to r/o electrolyte abnormality, thyroid abnormality, or anemia Rectal bleeding 05/19/2024 Assessment & Plan (05/19/2024 1:53 PM JOB COUNSELOR): Subacute, persistent Hx of GI symptoms (Patient needed colonoscopy at a young age but does not remember the indication) Patient denies pain with defecation Regular BMs (sometimes oily) GI referral placed Stool studies/FIT test ordered/Celiac testing Obsessive-compulsive disorder 01/24/2024 Assessment & Plan (06/18/2024 7:33 AM JOB COUNSELOR): Chronic, improved Tics (physical) Seen at [facility] when Patient was young Started on Prozac 40 mg/day with improvement in symptoms Continue to monitor Anxiety 07/31/2010 Assessment & Plan (06/18/2024 7:31 AM JOB COUNSELOR): Chronic, Stable Assoc with hx of OCD (tics) Tried therapy in the past, but Patient feels like they are able to manage on their own with previously learned coping skills and mechanisms Continue Prozac 40 mg/day Resolved Problems Problem Noted Date Diagnosed Date Resolved Date Bilateral acute serous otitis media 01/24/2024 05/16/2024 Nausea with vomiting 07/31/2010 024 Overweight 07/31/2010 12/29/2023 Immunizations Immunization Administration Dates Next Due Hep A, Adult 08/21/2021 Hep A, Pediatric 09/22/2014 Hep B Vaccine 08/21/2021 Influenza, Quadrivalent, Vivian l Culture-based MDCK, Preservative Free, Antibiotic Free, Intramuscular 02/08/2023 Influenza, Trivalent, Cell C ulture-based MDCK, Preservative Free, Antibiotic Free, Intramuscular 02/08/2023 Influenza, Trivalent, IM (MDV) 12/24/2020 Influenza, Unspecified 02/14/2024,01/13/2022 Meningococcal MCV4P (Menactra) 10/13/2019 Tdap 11/27/2019 Varicella 11/30/2004,12/01/1999 Social History Tobacco Use Types Packs/Day Years Used Date Smoking Tobacco: Never Cigarettes Smokeless Tobacco: Never AUDIT-C Answer Date Recorded Q1: How often do you have a drink containing alc ohol? 2-4 times a month 03/11/2023 Q2: How many drinks containi ng alcohol do you have on a typical day when you are drinking? 1 or 2 03/11/2023 Q3: How often do you have si x or more drinks on one occasion? Never 03/11/2023 PHQ-2 Answer Date Recorded PHQ-2 Total Score (If total score is 3 or more points, staff should administer the PHQ-9) 0 05/19/2024 Sex and Gender Information Value Date Recorded Sex Assigned at Not on file Legal Sex Male 8:42 AM JOB COUNSELOR Gender Identity Not on file Sexual Orientation Not on file Last Filed Vital Signs Vital Sign Reading Time Taken Comments Blood Pressure 106/72 05/19/2024 1:07 PM JOB COUNSELOR Pulse 63 05/19/2024 1:07 PM JOB COUNSELOR Temperature 36.8 C (98.3 F) 05/19/2024 1:07 PM JOB COUNSELOR Respiratory Rate 16 05/19/2024 1:07 PM JOB COUNSELOR Oxygen Saturation 97% 05/19/2024 1:07 PM JOB COUNSELOR Inhaled Oxygen Concentration - - Weight 97.5 kg (215 lb) 05/19/2024 1:07 PM JOB COUNSELOR Height 188 cm (6' 2 ) 05/19/2024 1:07 PM JOB COUNSELOR Body Mass Index 27.6 05/19/2024 1:07 PM JOB COUNSELOR Plan of Treatment Not on file Procedures Procedure Name Priority Date/Time Associated Diagnosis Comments FIT OCCULT BLOOD, FECAL Routine 05/27/2024 11:25 AM JOB COUNSELOR Rectal bleeding H. PYLORI ANTIGEN, STOOL Routine 05/27/2024 11:22 AM JOB COUNSELOR Rectal bleeding Abdominal pain STOOL CULTURE Routine 05/27/2024 11:22 AM JOB COUNSELOR Rectal bleeding US ABDOMEN COMPLETE Schedule Routine, Read Routine (OP Routine) 05/27/2024 10:12 AM JOB COUNSELOR Rectal bleeding Abdominal pain EGFR Routine 05/19/2024 2:41 PM JOB COUNSELOR Syncope, unspecified syncope type DIFFERENTIAL AUTO Routine 05/19/2024 2:4 1 PM JOB COUNSELOR Syncope, unspecified syncope type COMPREHENSIVE METABOLIC PANEL Routine 05/19/2024 2:41 PM JOB COUNSELOR Syncope, unspecified syncope type CBC WITH AUTO DIFFERENTIAL Routine 05/19/2024 2:41 PM JOB COUNSELOR Syncope, unspecified syncope type THYROID FUNCTION CASCADE Routine 05/19/2024 2:41 PM JOB COUNSELOR Syncope, unspecified syncope type HEMOGLOBIN A1C Routine 05/19/2024 2:41 PM JOB COUNSELOR Syncope, unspecified syncope type TISSUE TRANSGLUTAMINASE, IGA Routine 05/19/2024 2:41 PM JOB COUNSELOR Rectal bleeding TISSUE TRANSGLUTAMINASE, IGG Routine 05/19/2024 2:41 PM JOB COUNSELOR Rectal bleeding from Last 3 Months Results * FIT occult blood, fecal (05/27/2024 11:25 AM JOB COUNSELOR) FIT occult blood, fecal Negative Negative [facility] Comment: Negative result. This test will not detect upper gastrointestinal bleeding; the HemoQuant test ([id number])should be ordered if clinically indicated. Test Performed by: [place] [address] Motor Equipment Sergeant: Crispin Dong Ph.D.; CLIA# [id number] Stool 05/27/2024 11:2 5 AM JOB COUNSELOR 05/27/2024 7:26 PM JOB COUNSELOR us Lilian Anthony MD LAB BODY FLUID S AND STOOLS ORDERABLES Final Result [facility] [address] Department [place] [address] [facility] * H. pylori antigen, stool Stool (05/27/2024 11:22 AM JOB COUNSELOR) H. pylori Ag, stool Negative Negative Comment: Interpretative Data Testing performed at the [facility] using the Curian HpSA lateral flow immunoassay that detects Helicobacter pylori antigen in feces. This test is FDA cleared and its performance characteristics have been verified by the performing laboratory. False negative H. pylori antigen results may occur in patients on antimicrobials, proton pump inhibitors, or bismuth preparations; if clinically indicated, testing should be repeated on a new specimen two weeks after discontinuing these treatments. Interpretative data last revised April 2020. Testing performed by: [facility], [address] [place] [address]., [id number] Stool 05/27/2024 11:2 2 AM JOB COUNSELOR 05/27/2024 10:10 PM JOB COUNSELOR Lilian Anthony MD LAB MICROBIOLO GY - GENERAL ORDERABLES Final Result [facility] [address] Department [place] [address] * Stool culture Stool (05/27/2024 11:22 AM JOB COUNSELOR) Direct Specimen Exam Shiga Toxin Testing: Antigen detection assay for Shiga-toxin NEGATIVE for Shiga Toxin 1 and Shiga Toxin 2. Comment:Testing performed by : [facility], [address] [place] [address]., [id number] Report Final Report: No growth of enteric bacterial pathogens [facility] Comment:Testing performed by : [facility], [address] [place] [address]., [id number] Stool 05/27/2024 11:2 2 AM JOB COUNSELOR 05/27/2024 10:11 PM JOB COUNSELOR Narrative [facility] - 06/01/2024 8:42 AM JOB COUNSELOR Specimen received in Culture and Sensitivity Stool Transport Vial Testing performed by [facility] ([phone]). Routine stool cultures include procedures to detect Salmonella, Shigella, Edwardsiella, Aeromonas, Pleisiomonas, Campylobacter, Yersinia, E. coli O157, and Shiga-like toxins. Vibrio is cultured only upon special request. If Vibrio is suspected, please call the laboratory at [phone]. Interpretive data was last updated August 20, 2016. Lilian Anthony MD LAB MICROBIOLO GY - GENERAL ORDERABLES Final Result [facility] [address] Department [place] [address] * US Abdomen Complete (05/27/2024 10:12 AM JOB COUNSELOR) Anatomical Region Laterality Modality Abdomen N/A Ultrasound 05/27/2024 10:4 1 AM JOB COUNSELOR Impressions 05/27/2024 10:41 AM JOB COUNSELOR Unremarkable abdominal sonogram study. Prior cholecystectomy. No evidence of chronic renal parenchymal disease Electronically signed by: Nick Borges M.D. Narrative 05/27/2024 10:41 AM JOB COUNSELOR EXAMINATION: US ABDOMEN COMPLETE DATE: 05/27/2024 9:15 AM Technique: Ultrasound imaging of the abdomen with duplex imaging including color flow imaging and spectral analysis. History: Abdominal Pain/rectal bleeding Findings: There was relatively homogenous echotexture throughout the liver. There are no dilated intrahepatic ducts. There was normal hepatopedal flow. There appears to be patency of the hepatic veins without evidence of stricture, web or thrombus. The common bile duct was approximately 5 mm in width. The gallbladder has been resected. Spleen is homogeneous in echotexture and measures 12 cm in length The right kidney demonstrated normal echotexture without focal change or hydronephrosis. The right kidney measured 120 x 37 mm The left kidney demonstrated normal echotexture without focal change or hydronephrosis. The left kidney measured 125 x 51 mm On duplex imaging, vascular flow is demonstrated in each kidney. The pancreas, aorta and IVC were unremarkable as visualized. There was no ascites. Procedure Note Nick Borges MD - 05/27/2024 EXAMINATION: US ABDOMEN COMPLETE DATE: 05/27/2024 9:15 AM Technique: Ultrasound imaging of the abdomen with duplex imaging including color flow imaging and spectral analysis. History: Abdominal Pain/rectal bleeding Findings: There was relatively homogenous echotexture throughout the liver. There are no dilated intrahepatic ducts. There was normal hepatopedal flow. There appears to be patency of the hepatic veins without evidence of stricture, web or thrombus. The common bile duct was approximately 5 mm in width. The gallbladder has been resected. Spleen is homogeneous in echotexture and measures 12 cm in length The right kidney demonstrated normal echotexture without focal change or hydronephrosis. The right kidney measured 120 x 37 mm The left kidney demonstrated normal echotexture without focal change or hydronephrosis. The left kidney measured 125 x 51 mm On duplex imaging, vascular flow is demonstrated in each kidney. The pancreas, aorta and IVC were unremarkable as visualized. There was no ascites. IMPRESSION: Unremarkable abdominal sonogram study. Prior cholecystectomy. No evidence of chronic renal parenchymal disease Electronically signed by: Nick Borges M.D. us Lilina Anthony MD [facility] US PROCEDU RES Final Result * eGFR (05/19/2024 2:41 PM JOB COUNSELOR) eGFR >90 >=60 mL/min/1. 73 m2 Comment: Interpretive Data Reference Interval Normal >/= 90 mL/min/1.73m2 Mildly decreased* 60 - 89 mL/min/1.73m2 Mildly to moderately decreased 45 - 59 mL/min/1.73m2 Moderately to severely decreased 30 - 44 mL/min/1.73m2 Severely decreased 15 - 29 mL/min/1.73m2 Kidney Failure < 15 mL/min/1.73m2 *Relative to young adult level Estimated glomerular filtration rate is determined by the 2020 CKD-EPI equation recommended by the National Kidney Foundation (A Unifying Approach to GFR Estimation: Recommendations of the NKF-ASK Task Force on Reassessing the Inclusion of Race in Diagnosing Kidney Disease, JASN 2020). The CKD-EPI equation should not be used for patients with unstable renal function and has not been validated in children and those over 70. Current interpretive data was last reviewed 2021. Blood 05/19/2024 2:41 PM JOB COUNSELOR 05/19/2024 6:21 PM JOB COUNSELOR us Lilian Anthony MD LAB BLOOD LARISSA BOURGEOIS Final Result [facility] [address] Department [place] [address] * Differential, auto (05/19/2024 2:41 PM JOB COUNSELOR) Neutrophil abs 3.7 1.5 - 6.5 K/cumm Imm gran abs 0.0 0.0 - 0.1 K/cumm [facility] Lymphocyte abs 1.8 0.8 - 3.3 K/cumm [facility] Monocyte abs 0.4 0.2 - 0.8 K/cumm [facility] Eosinophil abs 0.1 0.0 - 0.5 K/cumm [facility] Basophil abs 0.1 0.0 - 0.1 K/cumm [facility] Neutrophil pct 61.7 % [facility] Comment: Interpretive Data Percent cell count reference ranges are not reported, since discordance with absolute values may lead to misinterpretation of CBC data. Current Interpretive Data was last revised on 2017. Imm gran pct 0.2 % [facility] Comment: Interpretive Data Percent cell count reference ranges are not reported, since discordance with absolute values may lead to misinterpretation of CBC data. Current Interpretive Data was last revised on 2017. Lymphocyte pct 30.1 % [facility] Comment: Interpretive Data Percent cell count reference ranges are not reported, since discordance with absolute values may lead to misinterpretation of CBC data. Current Interpretive Data was last revised on 2017. Monocyte pct 6.0 % [facility] Comment: Interpretive Data Percent cell count reference ranges are not reported, since discordance with absolute values may lead to misinterpretation of CBC data. Current Interpretive Data was last revised on 2017. Eosinophil pct 1.2 % [facility] Comment: Interpretive Data Percent cell count reference ranges are not reported, since discordance with absolute values may lead to misinterpretation of CBC data. Current Interpretive Data was last revised on 2017. Basophil pct 0.8 % [facility] Comment: Interpretive Data Percent cell count reference ranges are not reported, since discordance with absolute values may lead to misinterpretation of CBC data. Current Interpretive Data was last revised on 2017. Blood 05/19/2024 2:41 PM JOB COUNSELOR 05/19/2024 6:00 PM JOB COUNSELOR Lilian Anthony MD LAB BLOOD ORDE BK Final Result [facility] [address] [address] [place] [address] * Thyroid Function [place] (05/19/2024 2:41 PM JOB COUNSELOR) Pathologist [facility] TSH 1.26 0.30 - 4.20 mcIUnit/mL Blood 05/19/2024 2:41 PM JOB COUNSELOR 05/19/2024 6:00 PM JOB COUNSELOR Lilian Anthony MD LAB BLOOD ORDLester BOURGEOIS Final Result Performing Organization Address City/[facility] Co de Phone Number [facility] [address] [address] [place] [address] * CBC with auto differential (05/19/2024 2:41 PM JOB COUNSELOR) WBC 6.0 3.8 - 9.9 K/cumm Hgb 14.5 13.0 - 17.5 g/dL [facility] Hct 42.6 38.9 - 50.3 % [facility] Plt 229 150 - 400 K/cumm [facility] MPV 10.5 9.1 - 12.3 fL [facility] RBC 4.85 4.30 - 5.80 M/cumm [facility] MCV 87.8 81.3 - 96.4 fL [facility] MCH 29.9 27.1 - 33.3 pg [facility] MCHC 34.0 32.3 - 35.7 g/dL [facility] RDW CV 12.0 11.1 - 14.9 % [facility] RDW SD 38.5 35.7 - 48.1 fL [facility] NRBC abs 0.00 0.00 - 0.01 K/cumm [facility] Blood 05/19/2024 2:41 PM JOB COUNSELOR 05/19/2024 6:00 PM JOB COUNSELOR Lilian Anthony MD LAB BLOOD ORDE RABLES Final Result Performing Organization Address City/[facility]/ZIP Co de Phone Number [facility] [address] [address] [place] [address] * Tissue transglutaminase IgA (TGG-IgA Ab) (05/19/2024 2:41 PM JOB COUNSELOR) TTG ab, IgA <0.5 <=14.9 units/mL Comment: Interpretive data Negative: <15 units/mL Positive: > or equal to 15 units/mL Current interpretive data was last revised on 2016. Testing performed by: [facility], [address] [place] [address]., [id number] Blood 05/19/2024 2:41 PM JOB COUNSELOR 05/19/2024 10:01 PM JOB COUNSELOR Lilian Anthony MD LAB BLOOD ORDE RABLES Final Result Performing Organization Address [facility] Co de Phone Number [facility] [address] [address] [place] [address] * Tissue transglutaminase, IgG (TGG-IgG Ab) (05/19/2024 2:41 PM JOB COUNSELOR) TTG ab, IgG <0.8 <=14.9 units/mL Comment: Interpretive data Negative: <15 units/mL Positive: > or equal to 15 units/mL Current interpretive data was last revised on 2016. Testing performed by: [facility], [address] [place]., [address] Blood 05/19/2024 2:41 PM JOB COUNSELOR 05/19/2024 10:01 PM JOB COUNSELOR Lilian Anthony MD LAB BLOOD ORDE RABLES Final Result Performing Organization Address City/[facility]/ZIP Co de Phone Number [facility] [address] [address] [place] [address] * Hemoglobin A1c (05/19/2024 2:41 PM JOB COUNSELOR) Hgb A1C 4.9 4.0 - 5.6 % Estimated Average Glucose 94 mg/dL [facility] Comment: The ADA recommends reporting an estimated Average Glucose (eAG) with all Hemoglobin A1c results using the equation derived from a study of 507 normal and diabetic adults. Minority populations were underrepresented and children were not included. (Diabetes Care 31:7964-3502, 2008). The eAG is not equivalent to a fasting glucose. Blood 05/19/2024 2:41 PM JOB COUNSELOR 05/19/2024 6:00 PM JOB COUNSELOR Lilian Anthony MD LAB BLOOD ORDE BK Final Result [facility] [address] [address] Department [place] [address] * Comprehensive metabolic panel (05/19/2024 2:41 PM JOB COUNSELOR) Pathologist [facility] Sodium 139 135 - 145 mmol/L Potassium, pl 3.9 3.3 - 4.9 mmol/L [facility] Chloride 103 97 - 110 mmol/L [facility] CO2 22 22 - 32 mmol/L [facility] Anion gap 14 2 - 15 mmol/L [facility] BUN 20 6 - 25 mg/dL [facility] Creatinine 0.98 0.80 - 1.30 mg/dL [facility] Glucose 86 70 - 199 mg/dL [facility] Comment: Interpretive Data Fasting glucose >/= 126 mg/dl is diagnostic for diabetes. Fasting is defined as no caloric intake for at least 8 hours. Fasting glucose between 100 mg/dl to 125 mg/dl is diagnostic of prediabetes. In a patient with classic symptoms of hyperglycemia or hyperglycemic crisis, a random glucose >/= 200 mg/dl is diagnostic for diabetes. In the absence of unequivocal hyperglycemia, results should be confirmed by repeat testing. The classification and Diagnosis of Diabetes Diabetes Care 2021; 46: S19-S40. Current interpretive data was last revised 2022. Calcium 9.5 8.5 - 10.3 mg/dL [facility] Bilirubin, total 0.5 0.1 - 1.2 mg/dL [facility] Protein, pl 6.9 6.5 - 8.5 g/dL [facility] Albumin 4.8 3.5 - 5.0 g/dL [facility] Alk phos 64 40 - 130 Units/L [facility] ALT 16 7 - 55 Units/L [facility] AST 23 10 - 50 Units/L [facility] Blood 05/19/2024 2:41 PM JOB COUNSELOR 05/19/2024 6:00 PM JOB COUNSELOR Lilian Anthony MD LAB BLOOD LARISSA BOURGEOIS Final Result [facility] [address] [address] Department [place] [address] from Last 3 Months Insurance CHOICE PLUS CHOICE PLUS Care Teams Assembling Machine Operator Relationship Specialty [place] [address] [facility] [address] [place] [address] PCP - General Family Medicine 05/19/24
--- OUTSIDE RECORDS SUMMARY | 2024-08-12 14:30 | XMS_ITS | Clinical Summary ---
Author Organization [address] Address [address] [place] [phone] Care Team Providers Care Accountant Bookkeeper Name Role Phone Lilian Anthony MD Primary Care Provider Allergies No known active allergies Medications albuterol [...] 06/18/2024 Assessment & Plan (06/18/2024 7:33 AM CABLE TESTER): Chronic Environmental and cat hair Does well with PRN Zyrtec Continue present managment Cold-induced asthma, mild intermittent, uncompli cated 06/18/2024 Assessment & Plan (06/18/2024 7:39 AM CABLE TESTER): Chronic If Patient exercises in the cold, he has wheezing and shortness of breath Better with PRN Albuterol Syncope 05/19/2024 Assessment & Plan (05/19/2024 1:52 PM CABLE TESTER): Subacute, recurrent Neuro exam grossly normal Likely vasovagal Hx of seizures in childhood - neuro cause considered - CT ordered Patient reports feeling palpitations - holter and EKG ordered Labs to r/o electrolyte abnormality, thyroid abnormality, or anemia Rectal bleeding 05/19/2024 Assessment & Plan (05/19/2024 1:53 PM CABLE TESTER): Subacute, persistent Hx of GI symptoms (Patient needed colonoscopy at a young age but does not remember the indication) Patient denies pain with defecation Regular BMs (sometimes oily) GI referral placed Stool studies/FIT test ordered/Celiac testing Obsessive-compulsive disorder 01/24/2024 Assessment & Plan (06/18/2024 7:33 AM CABLE TESTER): Chronic, improved Tics (physical) Seen at [facility] when Patient was young Started on Prozac 40 mg/day with improvement in symptoms Continue to monitor Anxiety 07/31/2010 Assessment & Plan (06/18/2024 7:31 AM CABLE TESTER): Chronic, Stable Assoc with hx of OCD (tics) Tried therapy in the past, but Patient feels like they are able to manage on their own with previously learned coping skills and mechanisms Continue Prozac 40 mg/day Resolved Problems Problem Noted Date Diagnosed Date Resolved Date Bilateral acute serous otitis media 01/24/2024 05/16/2024 Nausea with vomiting 07/31/2010 024 Overweight 07/31/2010 12/29/2023 Encounters Date Type Department Care Team Description 06/22/2024 Telephone Family Care at [address] [phone] Lilian Anthony MD Appointment/Schedules 06/18/2024 7:00 AM CABLE TESTER Telemedicine Family Care at [address] [phone] Lilian Anthony MD Anxiety (Primary Dx); Obsessive-compulsive disorder, unspecified type; Cold-induced asthma, mild intermittent, uncomplicated 06/01/2024 Results Follow-Up [facility] [place] [id number] [place] [phone] Lilian Anthony MD 05/27/2024 11:22 AM CABLE TESTER - 05/27/2024 11:59 PM CABLE TESTER Hospital Encounter [address] [address] Rectal bleeding; Abdominal pain Discharge Disposition: Discharge to home or self care 05/27/2024 11:15 AM CABLE TESTER Lab [facility] Outpatient Lab at [address] [phone] 05/27/2024 8:55 AM CABLE TESTER - 05/27/2024 11:59 PM CABLE TESTER Hospital Encounter [address] [address] Rectal bleeding; Abdominal pain Discharge Disposition: Discharge to home or self care 05/19/2024 2:15 PM CABLE TESTER Lab [address] [phone] Rectal bleeding; Syncope, unspecified syncope type 05/19/2024 1:00 PM CABLE TESTER Office Visit [facility] Primary Care [address] [phone] Lilian Anthony MD Syncope, unspecified syncope type (Primary Dx); Rectal bleeding; Abdominal pain; Nausea and vomiting, unspecified vomiting type from Last 3 Months Immunizations Immunization Administration Dates Next Due Hep A, Adult 08/21/2021 Hep A, Pediatric 09/22/2014 Hep B Vaccine 08/21/2021 Influenza, Quadrivalent, Vivian l Culture-based MDCK, Preservative Free, Antibiotic Free, Intramuscular 02/08/2023 Influenza, Trivalent, Cell C ulture-based MDCK, Preservative Free, Antibiotic Free, Intramuscular 02/08/2023 Influenza, Trivalent, IM (MDV) 12/24/2020 Influenza, Unspecified 02/14/2024,01/13/2022 Meningococcal MCV4P (Menactra) 10/13/2019 Tdap 11/27/2019 Varicella 11/30/2004,12/01/1999 Surgical History Surgery Date Site/Laterality Comments APPENDECTOMY Appendectomy - (Added by TW Conv) CHOLECYSTECTOMY FOOT SURGERY Left TONSILLECTOMY AND ADENOIDECTOMY Medical History Medical History Date Comments Personal history of other di seases of the nervous system and sense organs History of migrain e headaches - (Added by TW Conv) Personal history of other di seases of the digestive system History of intestinal obstru ction - (Added by TW Conv) Anxiety 2007 Arthritis 2013 Brain concussion 2009 Depression 2007 Migraines 2007 Kidney stone 2015 Bilateral 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 Family History Medical History Relation Name Comments Colon polyps Father Heart disease Maternal Grandfather Miquel Obesity Maternal Grandfather Miquel Stroke Maternal Grandfather Miquel Anxiety disorder Mother Janel Anxiety Dis order NOS - (Added by TW Conv) Hypertension Mother Janel Hypertension - (Added by TW Conv) Obesity Mother Janel Anxiety disorder Other Anxiety Dis order NOS - (Added by TW Conv) Heart disease Paternal Grandfather Richar Alzheimer's disease Paternal Grandmother Angella Polycystic ovary syndrome Sister Relation Name Status Comments Father Alive Maternal Grandfather Miquel Alive Maternal Grandmother Alive Mother Janel Alive Other Paternal Grandfather Richar Alive Paternal Grandmother Angella Sister Alive Social History Tobacco Use Types Packs/Day Years [...] on file Legal Sex Male 8:42 AM CABLE TESTER Gender Identity Not on file Sexual Orientation Not on file Obstetrics History Last Filed Vital Signs Vital Sign Reading Time Taken Comments Blood Pressure 106/72 05/19/2024 1:07 PM CABLE TESTER Pulse 63 05/19/2024 1:07 PM CABLE TESTER Temperature 36.8 C (98.3 F) 05/19/2024 1:07 PM CABLE TESTER Respiratory Rate 16 05/19/2024 1:07 PM CABLE TESTER Oxygen Saturation 97% 05/19/2024 1:07 PM CABLE TESTER Inhaled Oxygen Concentration - - Weight 97.5 kg (215 lb) 05/19/2024 1:07 PM CABLE TESTER Height 188 cm (6' 2 ) 05/19/2024 1:07 PM CABLE TESTER Body Mass Index 27.6 05/19/2024 1:07 PM CABLE TESTER Plan of Treatment Health Maintenance Due Date Last Done Comments Hepatitis C Screening 1998 HPV Vaccines (1 - Male 3-dos e series) 2013 Pneumococcal vaccine <65 (1 of 2 - PCV) 2017 Covid-19 Vaccine (5 - 2023-2 5 season) 2023 02/08/2023, 06/06/2021, 08/04/2020, Additional history exists Regular Well Visit/Exam 18-64 05/16/2024 05/16/2023 Depression Screening 05/19/2025 05/19/2024, 05/16/2023, 05/16/2023, Additional history exists DTaP/Tdap/Td Vaccine (2 - Td or Tdap) 11/26/2029 11/27/2019 Varicella Vaccines Completed 11/30/2004, 12/01/1999 Hepatitis B Screening Completed 08/21/2021 Influenza Vaccine Completed 02/14/2024, , 02/08/2023, Additional history exists Procedures Procedure Name Priority Date/Time Associated Diagnosis Comments FIT OCCULT BLOOD, FECAL Routine 05/27/2024 11:25 AM CABLE TESTER Rectal bleeding H. PYLORI ANTIGEN, STOOL Routine 05/27/2024 11:22 AM CABLE TESTER Rectal bleeding Abdominal pain STOOL CULTURE Routine 05/27/2024 11:22 AM CABLE TESTER Rectal bleeding US ABDOMEN COMPLETE Schedule Routine, Read Routine (OP Routine) 05/27/2024 10:12 AM CABLE TESTER Rectal bleeding Abdominal pain EGFR Routine 05/19/2024 2:41 PM CABLE TESTER Syncope, unspecified syncope type DIFFERENTIAL AUTO Routine 05/19/2024 2:4 1 PM CABLE TESTER Syncope, unspecified syncope type COMPREHENSIVE METABOLIC PANEL Routine 05/19/2024 2:41 PM CABLE TESTER Syncope, unspecified syncope type CBC WITH AUTO DIFFERENTIAL Routine 05/19/2024 2:41 PM CABLE TESTER Syncope, unspecified syncope type THYROID FUNCTION CASCADE Routine 05/19/2024 2:41 PM CABLE TESTER Syncope, unspecified syncope type HEMOGLOBIN A1C Routine 05/19/2024 2:41 PM CABLE TESTER Syncope, unspecified syncope type TISSUE TRANSGLUTAMINASE, IGA Routine 05/19/2024 2:41 PM CABLE TESTER Rectal bleeding TISSUE TRANSGLUTAMINASE, IGG Routine 05/19/2024 2:41 PM CABLE TESTER Rectal bleeding from Last 3 Months Results * FIT occult blood, fecal (05/27/2024 11:25 AM CABLE TESTER) FIT occult blood, fecal Negative Negative [facility] Comment: Negative result. This test will not detect upper gastrointestinal bleeding; the HemoQuant test (9220)should be ordered if clinically indicated. Test Performed by: [place] [address] Manager Crisis: Crispin Dong Ph.D.; CLIA# [id number] Stool 05/27/2024 11:2 5 AM CABLE TESTER 05/27/2024 7:26 PM CABLE TESTER Lilian Anthony MD LAB BODY FLUID S AND STOOLS ORDERABLES Final Result [facility] [id number] Department [place] [address] [place] [facility] * H. pylori antigen, stool Stool (05/27/2024 11:22 AM CABLE TESTER) H. pylori Ag, stool Negative Negative Comment: Interpretative Data Testing performed at the [facility] using the SciGitian HpSA lateral flow immunoassay that detects Helicobacter [...] last revised April 2020. Testing performed by: [facility], [address] [place]., [address] Stool 05/27/2024 11:2 2 AM CABLE TESTER 05/27/2024 10:10 PM CABLE TESTER Lilian Anthony MD LAB MICROBIOLO GY - GENERAL ORDERABLES Final Result [facility] [address] Department [place] [address] * Stool culture Stool (05/27/2024 11:22 AM CABLE TESTER) Direct Specimen Exam Shiga Toxin Testing: Antigen detection assay for Shiga-toxin NEGATIVE for Shiga Toxin 1 and Shiga Toxin 2. Comment:Testing performed by : [facility], [address] [place]., [address] Report Final Report: No growth of enteric bacterial pathogens [facility] Comment:Testing performed by : [facility], [address] [place] [address]., [address] Stool 05/27/2024 11:2 2 AM CABLE TESTER 05/27/2024 10:11 PM CABLE TESTER Narrative [facility] - 06/01/2024 8:42 AM CABLE TESTER Specimen received in Culture and Sensitivity Stool Transport Vial Testing performed by [facility] ([phone]). Routine stool cultures include procedures to detect Salmonella, Shigella, Edwardsiella, Aeromonas, Pleisiomonas, Campylobacter, Yersinia, E. coli O157, and Shiga-like toxins. Vibrio is cultured only upon special request. If Vibrio is suspected, please call the laboratory at [phone]. Interpretive data was last updated August 20, 2016. Lilian Mojgan Anthony MD LAB MICROBIOLO GY - GENERAL ORDERABLES Final Result [facility] [address] Department [place] [address] * US Abdomen Complete (05/27/2024 10:12 AM CABLE TESTER) Anatomical Region Laterality Modality Abdomen N/A Ultrasound 05/27/2024 10:4 1 AM CABLE TESTER Impressions 05/27/2024 10:41 AM CABLE TESTER Unremarkable abdominal sonogram study. Prior cholecystectomy. No evidence of chronic renal parenchymal disease Electronically signed by: Nick Borges M.D. Narrative 05/27/2024 10:41 AM CABLE TESTER EXAMINATION: US ABDOMEN COMPLETE DATE: 05/27/2024 9:15 [...] disease Electronically signed by: Nick Borges M.D. Lilian Anthony MD [facility] US PROCEDU RES Final Result * eGFR (05/19/2024 2:41 PM CABLE TESTER) eGFR >90 >=60 mL/min/1. 73 m2 Comment: [...] of Race in Diagnosing Kidney Disease, JASN 202). The CKD-EPI equation should not be used for patients with unstable renal function and has not been validated in children and those over 70. Current interpretive data was last reviewed 2021. Blood 05/19/2024 2:41 PM CABLE TESTER 05/19/2024 6:21 PM CABLE TESTER us Lilian Anthony MD LAB BLOOD LARISSA BOURGEOIS Final Result [facility] [address] [place] [address] * Differential, auto (05/19/2024 2:41 PM CABLE TESTER) Neutrophil abs 3.7 1.5 - 6.5 K/cumm Imm gran abs 0.0 0.0 - 0.1 K/cumm [facility] Lymphocyte abs 1.8 0.8 - 3.3 K/cumm [facility] Monocyte abs 0.4 0.2 - 0.8 K/cumm [facility] Eosinophil abs 0.1 0.0 - 0.5 K/cumm [facility] Basophil abs 0.1 0.0 - 0.1 K/cumm [facility] Neutrophil pct 61.7 % [facility] Comment: Interpretive Data Percent cell count reference ranges are not reported, since discordance with absolute values may lead to misinterpretation of CBC data. Current Interpretive Data was last revised on 2017. Imm gran pct 0.2 % [facility] Comment: Interpretive Data Percent cell count reference ranges are not reported, since discordance with absolute values may lead to misinterpretation of CBC data. Current Interpretive Data was last revised on 2017. Lymphocyte pct 30.1 % [facility] Comment: Interpretive Data Percent cell count reference ranges are not reported, since discordance with absolute values may lead to misinterpretation of CBC data. Current Interpretive Data was last revised on 2017. Monocyte pct 6.0 % [facility] Comment: Interpretive Data Percent cell count reference ranges are not reported, since discordance with absolute values may lead to misinterpretation of CBC data. Current Interpretive Data was last revised on 2017. Eosinophil pct 1.2 % [facility] Comment: Interpretive Data Percent cell count reference ranges are not reported, since discordance with absolute values may lead to misinterpretation of CBC data. Current Interpretive Data was last revised on 2017. Basophil pct 0.8 % [facility] Comment: Interpretive Data Percent cell count reference ranges are not reported, since discordance with absolute values may lead to misinterpretation of CBC data. Current Interpretive Data was last revised on 2017. Blood 05/19/2024 2:41 PM CABLE TESTER 05/19/2024 6:00 PM CABLE TESTER Lilian Anthony MD LAB BLOOD ORDE RABJOEL Final Result [facility] [address] [facility] [place] [address] * Thyroid Function [place] (05/19/2024 2:41 PM CABLE TESTER) Pathologist [facility] TSH 1.26 0.30 - 4.20 mcIUnit/mL Blood 05/19/2024 2:41 PM CABLE TESTER 05/19/2024 6:00 PM CABLE TESTER Lilian Anthony MD LAB BLOOD ORDE BK Final Result Performing Organization Address City/[facility] Co de Phone Number [facility] [address] [facility] [place] [address] * CBC with auto differential (05/19/2024 2:41 PM CABLE TESTER) Pathologist [facility] WBC 6.0 3.8 - 9.9 K/cumm Hgb [...] K/cumm [facility] Blood 05/19/2024 2:41 PM CABLE TESTER 05/19/2024 6:00 PM CABLE TESTER Lilian Anthony MD LAB BLOOD ORDE RABLES Final Result Performing Organization Address [facility] Co de Phone Number [facility] [phone] [facility] [place] [address] * Tissue transglutaminase IgA (TGG-IgA Ab) (05/19/2024 2:41 PM CABLE TESTER) TTG ab, IgA <0.5 <=14.9 units/mL Comment: Interpretive data Negative: <15 units/mL Positive: > or equal to 15 units/mL Current interpretive data was last revised on 2016. Testing performed by: [facility], [address] [place] [address]., [address] Blood 05/19/2024 2:41 PM CABLE TESTER 05/19/2024 10:01 PM CABLE TESTER Lilian Anthony MD LAB BLOOD ORDE SHEREENJOEL Final Result Performing Organization Address [facility] de Phone Number [facility] [address] [facility] [place] [address] * Tissue transglutaminase, IgG (TGG-IgG Ab) (05/19/2024 2:41 PM CABLE TESTER) TTG ab, IgG <0.8 <=14.9 units/mL Comment: Interpretive data Negative: <15 units/mL Positive: > or equal to 15 units/mL Current interpretive data was last revised on 2016. Testing performed by: [facility], [address] [place]., [address] Blood 05/19/2024 2:41 PM CABLE TESTER 05/19/2024 10:01 PM CABLE TESTER Lilian Anthony MD LAB BLOOD ORDE RABJOEL Final Result Performing Organization Address City/[facility] Co de Phone Number [facility] [address] [place] [address] * Hemoglobin A1c (05/19/2024 2:41 PM CABLE TESTER) Hgb A1C 4.9 4.0 - 5.6 % Estimated Average Glucose 94 mg/dL [facility] Comment: The ADA recommends reporting an estimated Average Glucose (eAG) with all Hemoglobin A1c results using the equation derived from a study of 507 normal and diabetic adults. Minority populations were underrepresented and children were not included. (Diabetes Care 31:2589-4090, 2008). The eAG is not equivalent to a fasting glucose. Blood 05/19/2024 2:41 PM CABLE TESTER 05/19/2024 6:00 PM CABLE TESTER Lilian Anthony MD LAB BLOOD ORDLester BOURGEOIS Final Result [facility] [address] Department [place] [address] * Comprehensive metabolic panel (05/19/2024 2:41 PM CABLE TESTER) Pathologist [facility] Sodium 139 135 - 145 mmol/L Potassium, pl 3.9 3.3 - 4.9 mmol/L [facility] Chloride 103 97 - 110 mmol/L [facility] CO2 22 22 - 32 mmol/L [facility] Anion gap 14 2 - 15 mmol/L [facility] BUN 20 6 - 25 mg/dL [facility] Creatinine 0.98 0.80 - 1.30 mg/dL [facility] Glucose 86 70 - 199 mg/dL [facility] Comment: Interpretive Data Fasting glucose >/= 126 [...] 2022. Calcium 9.5 8.5 - 10.3 mg/dL [facility] Bilirubin, total 0.5 0.1 - 1.2 mg/dL [facility] Protein, pl 6.9 6.5 - 8.5 g/dL [facility] Albumin 4.8 3.5 - 5.0 g/dL [facility] Alk phos 64 40 - 130 Units/L [facility] ALT 16 7 - 55 Units/L [facility] AST 23 10 - 50 Units/L [facility] Blood 05/19/2024 2:41 PM CABLE TESTER 05/19/2024 6:00 PM CABLE TESTER us Lilian Anthony MD LAB BLOOD LARISSA BOURGEOIS Final Result [facility] [id number] Department [place] [address] from Last 3 Months Insurance Care Teams Accountant Bookkeeper Relationship Specialty [place] [id number] [address] [facility] [address] [place] [address] PCP - General Family Medicine 05/19/24
--- OUTSIDE RECORDS SUMMARY | 2024-08-12 14:30 | XMS_ITS | Data Portability ---
Author Organization [facility] CLI ROB [facility] [place], [address] [facility] ([place]) Address [address] [address] Care Team Providers Care Ventilation Equipment Tender Name Role Phone ARMANDO CASTELLANO Primary Care Provider Assessment No assessment recorded. Plan of Treatment Reminders Order Date Submit Date Provider Last Modified By Organization Details Last Modified Time Details Appointments None recorded. Lab None recorded. Referral None recorded. Procedures None recorded. Surgeries None recorded. Imaging None recorded. Medication Orders azithromyci n 250 mg tablet 2023 025 [facility], [address] [place], [address], 5 09:05:06 fluoxetine 40 mg capsule 2023 024 [facility] [address] [place], [address], 4 15:31:58 Patient TargetsNo targets recorded. Patient InstructionsNo instructions recorded. Reason for Referral None Reported. Problems Name Problem SNOMED Code Status Onset Date Resolution Date Notes Provider Name and Address Organization Details Recorded Time Obsessive- compulsive disorder 452370869 Active 2023 Sofie Roger APRN, BEAUTY ARTIST [address] [place] [address], [phone], [facility] 4 15:31:02 Acute serous otitis media of bilateral ears 52277455143797 07 Active 2023 Sofie Roger APRN, BEAUTY ARTIST [address] [place] [address], [phone], [facility] 4 15:41:22 Problem Notes None recorded. Medical Equipment None Reported. Allergies Allergen ID Allergen Name Allergen Category Reaction Reaction Severity Criticality Documentation Date Start Date Code Code System Note Provider Name and Address Organization Details Recorded Time 3540133 Amoxil medicatio n Not available Not available Not available 05/15/20232006 45667 9 RxNorm Not Available [facility] 4 03:59:33 4432682 Augmentin medicatio n Not available Not available Not available 01/22/20242006 77004 2 RxNorm Comme nt: Annot ation s: LESLIE JUNE , CLINI NFOTM P 2006 2:45P M VOMIT S; ; Not Available [facility] 4 19:44:46 Medications Name Sig Start Date Stop Date Status Note LastModified by Organization Details LastModified Time fluoxetine 40 mg capsule Take 2 capsules every day by oral route. 2023 active Not Available Not Available Not Avai lable azithromyci n 250 mg tablet TAKE 2 TABLETS (500 MG) BY ORAL ROUTE ONCE DAILY FOR 1 DAY THEN 1 TABLET (250 MG) BY ORAL ROUTE ONCE DAILY FOR 4 DAYS 07/09 completed Not Available Not Available Not Available prednisone 20 mg tablet 01/23 completed Not Available Not Available Not Available albuterol sulfate HFA 90 mcg/actuati on aerosol inhaler active Not Available Not Available Not Available ondansetron 4 mg disintegrat ing tablet active Not Available Not Available N ot Available Vitals Date Recorded Body weight Heart rate Oxygen saturation Oxygen saturation in Arterial blood by Pulse oximetry Systolic blood pressure Diastolic blood pressure Provider Name and Address Organization Details Last Updated DateTime 4 72287.6 3 g 89 /min 98 % 98 % 124 mm[Hg] 70 mm[Hg] Letha Temple [facility] 4 14:58:20 Date Recorded Body mass index (BMI) Body height Provider Name and Address Organization Details Last Updated DateTime 01/24/2024 27.8 kg/m2 185.42 cm Sofie Roger, CATALOG LIBRARIAN, BEAUTY ARTIST [address] [place] [address], [phone], [facility] 01/24/2024 16:00:47 Social History None recorded. Functional Status None recorded. Mental Status None recorded. Family History Nothing Reported. Medical History No medical history recorded. Immunizations Vaccine Type Date Status Note Provider Nam e and Address Organization Details Recorded Time Influenza, MDCK, quadrivalent, PF 3 completed Letha Temple [facility] 01/24/2024 14:58:31 COVID-19, mRNA, LNP-S, PF, 30 mcg/0.3 mL dose 2 completed Letha Temple [facility] 01/24/2024 14:58:31 COVID-19, mRNA, LNP-S, PF, 30 mcg/0.3 mL dose 1 completed Letha Temple [facility] 01/24/2024 14:58:31 COVID-19, mRNA, LNP-S, PF, 30 mcg/0.3 mL dose 1 completed Letha Temple [facility] 01/24/2024 14:58:31 COVID-19, mRNA, LNP-S, PF, mandi-sucrose, 30 mcg/0.3 mL 3 completed Letha Temple [facility] 01/24/2024 14:58:31 influenza, unspecified formulation 2 completed Letha Temple [facility] 01/24/2024 14:58:31 Tdap 0 completed Letha Temple [facility] 01/24/2024 14:58:31 varicella 0 completed Letha Temple [facility] 01/24/2024 14:58:31 varicella 5 completed Letha Temple [facility] 01/24/2024 14:58:31 Influenza, split virus, trivalent, preservative 1 completed Letha Temple [facility] 01/24/2024 14:58:31 Hep B, adult 2 completed Letha Temple [facility], [facility] 01/24/2024 14:58:31 Hep A, adult 2 completed Letha Temple null, [facility] 01/24/2024 14:58:31 Hep A, ped/adol, 2 dose 5 completed Letha Temple [facility] 01/24/2024 14:58:31 meningococcal MCV4P 0 completed Letha Temple [facility] 01/24/2024 14:58:31 Past Encounters Encounter ID Performer Location Encounter Start Date Encounter Closed Date Diagnosis/Indication Diagnosis SNOMED-CT Code Diagnosis ICD10 Code Diagnosis Note [id number] Sofie Roger APRN, BEAUTY ARTIST [address] ([place]) [address] [place] [address] 01/24/2024 14:48:47 01/26/2024 04:52:36 Obsessive-compulsive disorder 091979946 F42.9 Fluoxetine has been refilled. He will follow-up again in 6 months or sooner with any new concerns. Acute sero us otitis media of bilateral ears 6481255530 041942 H65.03 Start azithromyc in as directed. He will follow-up if symptoms have not resolved with treatment. Adult heal th examination 572383472 Z00.00 1. Cardiovasc ular risks-bloo d pressure normal range. BMI 26. I encourage healthy eating habits and exercise. 2. Immunizati ons-I recommend COVID and flu vaccines. Up-to-date on Tdap. This was given in November 2019.3. Cancer screening- up-to-date . Partners and prevention reviewed. Health Concerns Section Related Observation LastModified by Organization Detai ls LastModified Time None Recorded Concern Status LastModified by Organization Details LastModified Time None Recorded Advance Directives Directive None Recorded Payers Encounter Date Sequence Insurance Name Policy Number Policy Perez Covered Member ID Perez Member ID Guarantor Name 01/24/2024 1 [employer]: [employer] [facility] [id number] Pranav Reynoso [id number] Pranav Reynoso Notes Date Note Type Note Provider Name and Address Organization Details Recorded Time 01/24/2024 text/html Pranav is a very pleasant 23-year-old male here for a physical exam. He had been seeing a provider near [place] where he is currently living. The provider is no longer at the practice. 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 This typically occurs 1-2 times per month. Patient reports that he had labs checked last fall with the previous provider and there were no concerns found. He has OCD and has been on fluoxetine. He does feel that this medication works well. His only other complaint is bilateral ear pain. Sofie Roger, CATALOG LIBRARIAN, BEAUTY ARTIST [address] [place] [address], [phone], [facility] 01/27/2024 18:28:36
[2024-08-12] MEDS: HYDROcodone/acetaminophen (*CRX) 5-325 MG TABLET 1 TAB PO (16:34)
--- OUTSIDE RECORDS SUMMARY | 2024-08-12 16:38 | XMS_ITS | Clinical Summary ---
Author Organization [facility] Address [address] [place] [address] Care Team Providers Care Group Burner Machine Name Role Phone Cricket Larson MD Primary Care Provider [phone] Allergies No known active allergies Medications No known medications Active Problems No known active problems Social History Tobacco Use Types Packs/Day Years Used Date Smoking Tobacco: Never Assessed Sex and Gender Information Value Date Recorded Sex Assigned at Not on file Legal Sex Male 8:58 PM ACCOUNTING ANALYST Gender Identity Not on file Sexual Orientation [...] Comments HEPATITIS PANEL,ACUTE STAT 05/31/2019 3:25 PM ACCOUNTING ANALYST from Last 3 Months or Most Recently Relevant to Health Maintenance Results * HEPATITIS PANEL,ACUTE (05/31/2019 3:25 PM ACCOUNTING ANALYST) HEPATITIS B SURFACE AG NON-REACT GARY NON-REACT GARY 05/31/2019 6:28 PM ACCOUNTING ANALYST [facility] Comment:HBsAg NOT DETECTED. HEP B CORE IGM NON-REACT GARY NON-REACT GARY 05/31/2019 6:28 PM ACCOUNTING ANALYST [facility] Comment: IgM ANTI HBc NOT DETECTED. DOES NOT EXCLUDE THE POSSIBILITY OF EXPOSURE TO OR INFECTION WITH HBV. NO RETEST REQUIRED. HIGH DOSES OF BIOTIN MAY INTERFERE WITH THIS TEST RESULT. CORRELATION TO CLINICAL HISTORY AND PRESENTATION RECOMMENDED. HAV IGM NON-REACT GARY NON-REACT GARY 05/31/2019 6:28 PM ACCOUNTING ANALYST [facility] Comment: IgM ANTI HAV NOT DETECTED. DOES NOT EXCLUDE THE POSSIBILITY OF EXPOSURE TO OR INFECTION WITH HAV. LEVELS OF IgM ANTI HAV MAY BE BELOW THE CUTOFF IN EARLY INFECTION. HEPATITIS C AB NON-REACT GARY NON-REACT GARY 05/31/2019 6:28 PM ACCOUNTING ANALYST [facility] Comment: ANTIBODIES TO HCV NOT DETECTED. DOES NOT EXCLUDE THE POSSIBILITY OF EXPOSURE TO HCV. 05/31/2019 3:25 PM ACCOUNTING ANALYST Ghada Dwyer [facility] F inal Result [facility] [address] [place] [address], [id number] from Last 3 Months or Most Recently Relevant to Health Maintenance Insurance Care Teams Group Burner Machine Relationship Specialty Start Date End Date Cricket Larson MD [address] [place] [phone] PCP - General FAMILY PRACTICE 05/26/19
--- OUTSIDE RECORDS SUMMARY | 2024-08-12 16:38 | XMS_ITS | Clinical Summary ---
Author Organization [address] Address [address] [place] [phone] Care Team Providers Care Seals Engraver Name Role Phone Lilian Anthony MD Primary [...] 06/18/2024 Assessment & Plan (06/18/2024 7:33 AM CONTRACTS REPRESENTATIVE): Chronic Environmental and cat hair Does well with PRN Zyrtec Continue present managment Cold-induced asthma, mild intermittent, uncompli cated 06/18/2024 Assessment & Plan (06/18/2024 7:39 AM CONTRACTS REPRESENTATIVE): Chronic If Patient exercises in the cold, he has wheezing and shortness of breath Better with PRN Albuterol Syncope 05/19/2024 Assessment & Plan (05/19/2024 1:52 PM CONTRACTS REPRESENTATIVE): Subacute, recurrent Neuro exam grossly normal Likely vasovagal Hx of seizures in childhood - neuro cause considered - CT ordered Patient reports feeling palpitations - holter and EKG ordered Labs to r/o electrolyte abnormality, thyroid abnormality, or anemia Rectal bleeding 05/19/2024 Assessment & Plan (05/19/2024 1:53 PM CONTRACTS REPRESENTATIVE): Subacute, persistent Hx of GI symptoms (Patient needed colonoscopy at a young age but does not remember the indication) Patient denies pain with defecation Regular BMs (sometimes oily) GI referral placed Stool studies/FIT test ordered/Celiac testing Obsessive-compulsive disorder 01/24/2024 Assessment & Plan (06/18/2024 7:33 AM CONTRACTS REPRESENTATIVE): Chronic, improved Tics (physical) Seen at [facility] when Patient was young Started on Prozac 40 mg/day with improvement in symptoms Continue to monitor Anxiety 07/31/2010 Assessment & Plan (06/18/2024 7:31 AM CONTRACTS REPRESENTATIVE): Chronic, Stable Assoc with hx of OCD [...] Team Description 06/22/2024 Telephone Family Care at [address] [phone] Lilian Anthony MD Appointment/Schedules 06/18/2024 7:00 AM CONTRACTS REPRESENTATIVE Telemedicine Family Care at [address] [phone] Lilian Anthony MD Anxiety (Primary Dx); Obsessive-compulsive disorder, unspecified type; Cold-induced asthma, mild intermittent, uncomplicated 06/01/2024 Results Follow-Up [facility] [place] [id number] [place] [phone] Lilian Anthony MD 05/27/2024 11:22 AM CONTRACTS REPRESENTATIVE - 05/27/2024 11:59 PM CONTRACTS REPRESENTATIVE Hospital Encounter [address] [address] Rectal bleeding; Abdominal pain Discharge Disposition: Discharge to home or self care 05/27/2024 11:15 AM CONTRACTS REPRESENTATIVE Lab [facility] at [address] [phone] 05/27/2024 8:55 AM CONTRACTS REPRESENTATIVE - 05/27/2024 11:59 PM CONTRACTS REPRESENTATIVE Hospital Encounter [address] [address] Rectal bleeding; Abdominal pain Discharge Disposition: Discharge to home or self care 05/19/2024 2:15 PM CONTRACTS REPRESENTATIVE Lab [address] [phone] Rectal bleeding; Syncope, unspecified syncope type 05/19/2024 1:00 PM CONTRACTS REPRESENTATIVE Office Visit [facility] [address] [phone] Lilian Anthony MD Syncope, unspecified syncope type [...] on file Legal Sex Male 8:42 AM CONTRACTS REPRESENTATIVE Gender Identity Not on file Sexual Orientation Not on file Obstetrics History Last Filed Vital Signs Vital Sign Reading Time Taken Comments Blood Pressure 106/72 05/19/2024 1:07 PM CONTRACTS REPRESENTATIVE Pulse 63 05/19/2024 1:07 PM CONTRACTS REPRESENTATIVE Temperature 36.8 C (98.3 F) 05/19/2024 1:07 PM CONTRACTS REPRESENTATIVE Respiratory Rate 16 05/19/2024 1:07 PM CONTRACTS REPRESENTATIVE Oxygen Saturation 97% 05/19/2024 1:07 PM CONTRACTS REPRESENTATIVE Inhaled Oxygen Concentration - - Weight 97.5 kg (215 lb) 05/19/2024 1:07 PM CONTRACTS REPRESENTATIVE Height 188 cm (6' 2 ) 05/19/2024 1:07 PM CONTRACTS REPRESENTATIVE Body Mass Index 27.6 05/19/2024 1:07 PM CONTRACTS REPRESENTATIVE Plan of Treatment Health Maintenance Due Date [...] OCCULT BLOOD, FECAL Routine 05/27/2024 11:25 AM CONTRACTS REPRESENTATIVE Rectal bleeding H. PYLORI ANTIGEN, STOOL Routine 05/27/2024 11:22 AM CONTRACTS REPRESENTATIVE Rectal bleeding Abdominal pain STOOL CULTURE Routine 05/27/2024 11:22 AM CONTRACTS REPRESENTATIVE Rectal bleeding US ABDOMEN COMPLETE Schedule Routine, Read Routine (OP Routine) 05/27/2024 10:12 AM CONTRACTS REPRESENTATIVE Rectal bleeding Abdominal pain EGFR Routine 05/19/2024 2:41 PM CONTRACTS REPRESENTATIVE Syncope, unspecified syncope type DIFFERENTIAL AUTO Routine 05/19/2024 2:4 1 PM CONTRACTS REPRESENTATIVE Syncope, unspecified syncope type COMPREHENSIVE METABOLIC PANEL Routine 05/19/2024 2:41 PM CONTRACTS REPRESENTATIVE Syncope, unspecified syncope type CBC WITH AUTO DIFFERENTIAL Routine 05/19/2024 2:41 PM CONTRACTS REPRESENTATIVE Syncope, unspecified syncope type THYROID FUNCTION CASCADE Routine 05/19/2024 2:41 PM CONTRACTS REPRESENTATIVE Syncope, unspecified syncope type HEMOGLOBIN A1C Routine 05/19/2024 2:41 PM CONTRACTS REPRESENTATIVE Syncope, unspecified syncope type TISSUE TRANSGLUTAMINASE, IGA Routine 05/19/2024 2:41 PM CONTRACTS REPRESENTATIVE Rectal bleeding TISSUE TRANSGLUTAMINASE, IGG Routine 05/19/2024 2:41 PM CONTRACTS REPRESENTATIVE Rectal bleeding from Last 3 Months Results * FIT occult blood, fecal (05/27/2024 11:25 AM CONTRACTS REPRESENTATIVE) FIT occult blood, fecal Negative Negative [facility] Comment: Negative result. This test will not detect upper gastrointestinal bleeding; the HemoQuant test (9220)should be ordered if clinically indicated. Test Performed by: [place] [address] [employer] Truck Driver: Crispin Dong Ph.D.; CLIA# [id number] Stool 05/27/2024 11:2 5 AM CONTRACTS REPRESENTATIVE 05/27/2024 7:26 PM CONTRACTS REPRESENTATIVE Lilian Anthony MD LAB BODY FLUID S AND STOOLS ORDERABLES Final Result [facility] [address] Department [place] [address] [facility] * H. pylori antigen, stool Stool (05/27/2024 11:22 AM CONTRACTS REPRESENTATIVE) H. pylori Ag, stool Negative Negative Comment: Interpretative Data Testing performed at the [facility] using the Spotplexian HpSA lateral flow immunoassay that detects Helicobacter [...] last revised April 2020. Testing performed by: [facility], [address] [place]., [address] Stool 05/27/2024 11:2 2 AM CONTRACTS REPRESENTATIVE 05/27/2024 10:10 PM CONTRACTS REPRESENTATIVE Lilian Anthony MD LAB MICROBIOLO GY - GENERAL ORDERABLES Final Result [facility] [address] [address] Department [place] [address] * Stool culture Stool (05/27/2024 11:22 AM CONTRACTS REPRESENTATIVE) Direct Specimen Exam Shiga Toxin Testing: Antigen detection assay for Shiga-toxin NEGATIVE for Shiga Toxin 1 and Shiga Toxin 2. Comment:Testing performed by : [facility], [address] [place]., [address] Report Final Report: No growth of enteric bacterial pathogens [facility] Comment:Testing performed by : [facility], [address] [place] [address]., [address] Stool 05/27/2024 11:2 2 AM CONTRACTS REPRESENTATIVE 05/27/2024 10:11 PM CONTRACTS REPRESENTATIVE Narrative [facility] - 06/01/2024 8:42 AM CONTRACTS REPRESENTATIVE Specimen received in Culture and Sensitivity Stool Transport Vial Testing performed by [facility] ([phone]). Routine stool cultures include procedures to detect Salmonella, Shigella, Edwardsiella, Aeromonas, Pleisiomonas, Campylobacter, Yersinia, E. coli O157, and Shiga-like toxins. Vibrio is cultured only upon special request. If Vibrio is suspected, please call the laboratory at [phone]. Interpretive data was last updated August 20, 2016. Lilian Mojgan Anthony MD LAB MICROBIOLO GY - GENERAL ORDERABLES Final Result [facility] [address] Department [place] [address] * US Abdomen Complete (05/27/2024 10:12 AM CONTRACTS REPRESENTATIVE) Anatomical Region Laterality Modality Abdomen N/A Ultrasound 05/27/2024 10:4 1 AM CONTRACTS REPRESENTATIVE Impressions 05/27/2024 10:41 AM CONTRACTS REPRESENTATIVE Unremarkable abdominal sonogram study. Prior cholecystectomy. No evidence of chronic renal parenchymal disease Electronically signed by: Nick Borges M.D. Narrative 05/27/2024 10:41 AM CONTRACTS REPRESENTATIVE EXAMINATION: US ABDOMEN COMPLETE DATE: 05/27/2024 9:15 [...] by: Nick Borges M.D. Lilian Anthony MD [facility] US PROCEDU RES Final Result * eGFR (05/19/2024 2:41 PM CONTRACTS REPRESENTATIVE) eGFR >90 >=60 mL/min/1. 73 m2 Comment: [...] last reviewed 2021. Blood 05/19/2024 2:41 PM CONTRACTS REPRESENTATIVE 05/19/2024 6:21 PM CONTRACTS REPRESENTATIVE us Lilian Anthony MD LAB BLOOD LARISSA BOURGEOIS Final Result [facility] [address] [address] Department [place] [address] * Differential, auto (05/19/2024 2:41 PM CONTRACTS REPRESENTATIVE) Neutrophil abs 3.7 1.5 - 6.5 K/cumm [...] revised on 2017. Blood 05/19/2024 2:41 PM CONTRACTS REPRESENTATIVE 05/19/2024 6:00 PM CONTRACTS REPRESENTATIVE Lilian Anthony MD LAB BLOOD ORDE RABJOEL Final Result [facility] [address] [address] [facility] [place] [address] * Thyroid Function [place] (05/19/2024 2:41 PM CONTRACTS REPRESENTATIVE) Pathologist [facility] TSH 1.26 0.30 - 4.20 mcIUnit/mL Blood 05/19/2024 2:41 PM CONTRACTS REPRESENTATIVE 05/19/2024 6:00 PM CONTRACTS REPRESENTATIVE Lilian Anthony MD LAB BLOOD ORDE BK Final Result Performing Organization Address City/[facility] Co de Phone Number [facility] [address] [address] [facility] [place] [address] * CBC with auto differential (05/19/2024 2:41 PM CONTRACTS REPRESENTATIVE) Pathologist [facility] WBC 6.0 3.8 - 9.9 K/cumm Hgb [...] K/cumm [facility] Blood 05/19/2024 2:41 PM CONTRACTS REPRESENTATIVE 05/19/2024 6:00 PM CONTRACTS REPRESENTATIVE Lilian Anthony MD LAB BLOOD ORDE RABLES Final Result Performing Organization Address [facility] Co de Phone Number [facility] [address] [address] [facility] [place] [address] * Tissue transglutaminase IgA (TGG-IgA Ab) (05/19/2024 2:41 PM CONTRACTS REPRESENTATIVE) TTG ab, IgA <0.5 <=14.9 units/mL Comment: Interpretive data Negative: <15 units/mL Positive: > or equal to 15 units/mL Current interpretive data was last revised on 2016. Testing performed by: [facility], [address] [place] [address]., [address] Blood 05/19/2024 2:41 PM CONTRACTS REPRESENTATIVE 05/19/2024 10:01 PM CONTRACTS REPRESENTATIVE Lilian Anthony MD LAB BLOOD ORDE SHEREENJOEL Final Result Performing Organization Address [facility] de Phone Number [facility] [address] [address] [facility] [place] [address] * Tissue transglutaminase, IgG (TGG-IgG Ab) (05/19/2024 2:41 PM CONTRACTS REPRESENTATIVE) TTG ab, IgG <0.8 <=14.9 units/mL Comment: Interpretive data Negative: <15 units/mL Positive: > or equal to 15 units/mL Current interpretive data was last revised on 2016. Testing performed by: [facility], [address] [place]., [address] Blood 05/19/2024 2:41 PM CONTRACTS REPRESENTATIVE 05/19/2024 10:01 PM CONTRACTS REPRESENTATIVE Lilian Anthony MD LAB BLOOD ORDE RABJOEL Final Result Performing Organization Address City/[facility] Co de Phone Number [facility] [address] [address] Department [place] [address] * Hemoglobin A1c (05/19/2024 2:41 PM CONTRACTS REPRESENTATIVE) Hgb A1C 4.9 4.0 - 5.6 % Estimated Average Glucose 94 mg/dL [facility] Comment: The ADA recommends reporting an estimated Average Glucose (eAG) with all Hemoglobin A1c results using the equation derived from a study of 507 normal and diabetic adults. Minority populations were underrepresented and children were not included. (Diabetes Care 31:2793-6937, 2008). The eAG is not equivalent to a fasting glucose. Blood 05/19/2024 2:41 PM CONTRACTS REPRESENTATIVE 05/19/2024 6:00 PM CONTRACTS REPRESENTATIVE Lilian Anthony MD LAB BLOOD ORDLester BOURGEOIS Final Result [facility] [address] [address] Department [place] [address] * Comprehensive metabolic panel (05/19/2024 2:41 PM CONTRACTS REPRESENTATIVE) Pathologist [facility] Sodium 139 135 - 145 mmol/L Potassium, pl 3.9 3.3 - 4.9 mmol/L [facility] Chloride 103 97 - 110 mmol/L [facility] CO2 22 22 - 32 mmol/L [facility] Anion gap 14 2 - 15 mmol/L [facility] BUN 20 6 - 25 mg/dL [facility] Creatinine 0.98 0.80 - 1.30 mg/dL [facility] Glucose 86 70 - 199 mg/dL [facility] Comment: Interpretive Data Fasting glucose >/= [...] 2022. Calcium 9.5 8.5 - 10.3 mg/dL [facility] Bilirubin, total 0.5 0.1 - 1.2 mg/dL [facility] Protein, pl 6.9 6.5 - 8.5 g/dL [facility] Albumin 4.8 3.5 - 5.0 g/dL [facility] Alk phos 64 40 - 130 Units/L [facility] ALT 16 7 - 55 Units/L [facility] AST 23 10 - 50 Units/L [facility] Blood 05/19/2024 2:41 PM CONTRACTS REPRESENTATIVE 05/19/2024 6:00 PM CONTRACTS REPRESENTATIVE us Lilian Anthnoy MD LAB BLOOD LARISSA BOURGEOIS Final Result [facility] [address] [address] Department [place] [address] from Last [address] [place] [address] Care Teams Seals Engraver Relationship Specialty [place] [address] [address] [facility] [address] [place] [address] PCP - General Family Medicine 05/19/24
--- OUTSIDE RECORDS SUMMARY | 2024-08-12 16:38 | XMS_ITS | Referral Summary ---
Author Organization [address] Address [address] [place] [phone] Care Team Providers Care [email or web address] Android Developer Name Role Phone Lilian Anthony MD Primary Care Provider Encounters Date Type Department Care Team Description 06/22/2024 Telephone Family Care at [address] [phone] Lilian Anthony MD Appointment/Schedules 06/18/2024 7:00 AM WAREHOUSE PERSON Telemedicine Family Care at [address] [address] Lilian Anthony MD Anxiety (Primary Dx); Obsessive-compulsive disorder, unspecified type; Cold-induced asthma, mild intermittent, uncomplicated 06/01/2024 Results Follow-Up [facility] Primary Care - [address] [address] Lilian Anthony MD 05/27/2024 11:22 AM WAREHOUSE PERSON - 05/27/2024 11:59 PM WAREHOUSE PERSON Hospital Encounter [address] [address] Rectal bleeding; Abdominal pain Discharge Disposition: Discharge to home or self care 05/27/2024 11:15 AM WAREHOUSE PERSON Lab [facility] Outpatient Lab at [address] [phone] 05/27/2024 8:55 AM WAREHOUSE PERSON - 05/27/2024 11:59 PM WAREHOUSE PERSON Hospital Encounter [address] [place] [address] [place] [address] Rectal bleeding; Abdominal pain Discharge Disposition: Discharge to home or self care 05/19/2024 2:15 PM WAREHOUSE PERSON Lab [address] [phone] Rectal bleeding; Syncope, unspecified syncope type 05/19/2024 1:00 PM WAREHOUSE PERSON Office Visit [facility] Primary Care [facility] [id number] [place] [address] [address] [place] [address] Lilian Anthony MD Syncope, unspecified [...] 06/18/2024 Assessment & Plan (06/18/2024 7:33 AM WAREHOUSE PERSON): Chronic Environmental and cat hair Does well with PRN Zyrtec Continue present managment Cold-induced asthma, mild intermittent, uncompli cated 06/18/2024 Assessment & Plan (06/18/2024 7:39 AM WAREHOUSE PERSON): Chronic If Patient exercises in the cold, he has wheezing and shortness of breath Better with PRN Albuterol Syncope 05/19/2024 Assessment & Plan (05/19/2024 1:52 PM WAREHOUSE PERSON): Subacute, recurrent Neuro exam grossly normal Likely vasovagal Hx of seizures in childhood - neuro cause considered - CT ordered Patient reports feeling palpitations - holter and EKG ordered Labs to r/o electrolyte abnormality, thyroid abnormality, or anemia Rectal bleeding 05/19/2024 Assessment & Plan (05/19/2024 1:53 PM WAREHOUSE PERSON): Subacute, persistent Hx of GI symptoms (Patient needed colonoscopy at a young age but does not remember the indication) Patient denies pain with defecation Regular BMs (sometimes oily) GI referral placed Stool studies/FIT test ordered/Celiac testing Obsessive-compulsive disorder 01/24/2024 Assessment & Plan (06/18/2024 7:33 AM WAREHOUSE PERSON): Chronic, improved Tics (physical) Seen at [facility] when Patient was young Started on Prozac 40 mg/day with improvement in symptoms Continue to monitor Anxiety 07/31/2010 Assessment & Plan (06/18/2024 7:31 AM WAREHOUSE PERSON): Chronic, Stable Assoc with hx of OCD [...] on file Legal Sex Male 8:42 AM WAREHOUSE PERSON Gender Identity Not on file Sexual Orientation Not on file Last Filed Vital Signs Vital Sign Reading Time Taken Comments Blood Pressure 106/72 05/19/2024 1:07 PM WAREHOUSE PERSON Pulse 63 05/19/2024 1:07 PM WAREHOUSE PERSON Temperature 36.8 C (98.3 F) 05/19/2024 1:07 PM WAREHOUSE PERSON Respiratory Rate 16 05/19/2024 1:07 PM WAREHOUSE PERSON Oxygen Saturation 97% 05/19/2024 1:07 PM WAREHOUSE PERSON Inhaled Oxygen Concentration - - Weight 97.5 kg (215 lb) 05/19/2024 1:07 PM WAREHOUSE PERSON Height 188 cm (6' 2 ) 05/19/2024 1:07 PM WAREHOUSE PERSON Body Mass Index 27.6 05/19/2024 1:07 PM WAREHOUSE PERSON Plan of Treatment Not on file Procedures Procedure Name Priority Date/Time Associated Diagnosis Comments FIT OCCULT BLOOD, FECAL Routine 05/27/2024 11:25 AM WAREHOUSE PERSON Rectal bleeding H. PYLORI ANTIGEN, STOOL Routine 05/27/2024 11:22 AM WAREHOUSE PERSON Rectal bleeding Abdominal pain STOOL CULTURE Routine 05/27/2024 11:22 AM WAREHOUSE PERSON Rectal bleeding US ABDOMEN COMPLETE Schedule Routine, Read Routine (OP Routine) 05/27/2024 10:12 AM WAREHOUSE PERSON Rectal bleeding Abdominal pain EGFR Routine 05/19/2024 2:41 PM WAREHOUSE PERSON Syncope, unspecified syncope type DIFFERENTIAL AUTO Routine 05/19/2024 2:4 1 PM WAREHOUSE PERSON Syncope, unspecified syncope type COMPREHENSIVE METABOLIC PANEL Routine 05/19/2024 2:41 PM WAREHOUSE PERSON Syncope, unspecified syncope type CBC WITH AUTO DIFFERENTIAL Routine 05/19/2024 2:41 PM WAREHOUSE PERSON Syncope, unspecified syncope type THYROID FUNCTION CASCADE Routine 05/19/2024 2:41 PM WAREHOUSE PERSON Syncope, unspecified syncope type HEMOGLOBIN A1C Routine 05/19/2024 2:41 PM WAREHOUSE PERSON Syncope, unspecified syncope type TISSUE TRANSGLUTAMINASE, IGA Routine 05/19/2024 2:41 PM WAREHOUSE PERSON Rectal bleeding TISSUE TRANSGLUTAMINASE, IGG Routine 05/19/2024 2:41 PM WAREHOUSE PERSON Rectal bleeding from Last 3 Months Results * FIT occult blood, fecal (05/27/2024 11:25 AM WAREHOUSE PERSON) FIT occult blood, fecal Negative Negative [facility] Comment: Negative result. This test will not detect upper gastrointestinal bleeding; the HemoQuant test (9220)should be ordered if clinically indicated. Test Performed by: [place] [address] Curing Room Worker: Crispin Dong Ph.D.; CLIA# [id number] Stool 05/27/2024 11:2 5 AM WAREHOUSE PERSON 05/27/2024 7:26 PM WAREHOUSE PERSON us Lilian Anthony MD LAB BODY FLUID S AND STOOLS ORDERABLES Final Result [facility] [address] Department [place] [address] [facility] * H. pylori antigen, stool Stool (05/27/2024 11:22 AM WAREHOUSE PERSON) H. pylori Ag, stool Negative Negative Comment: Interpretative Data Testing performed at the [facility] using the Curian HpSA [...] last revised April 2020. Testing performed by: [facility], [address] [place] [address]., [address] Stool 05/27/2024 11:2 2 AM WAREHOUSE PERSON 05/27/2024 10:10 PM WAREHOUSE PERSON Lilian Anthony MD LAB MICROBIOLO GY - GENERAL ORDERABLES Final Result [facility] [address] Department [place] [address] * Stool culture Stool (05/27/2024 11:22 AM WAREHOUSE PERSON) Direct Specimen Exam Shiga Toxin Testing: Antigen detection assay for Shiga-toxin NEGATIVE for Shiga Toxin 1 and Shiga Toxin 2. Comment:Testing performed by : [facility], [address] [place] [address]., [id number] Report Final Report: No growth of enteric bacterial pathogens [facility] Comment:Testing performed by : [facility], [address] [place] [address]., [address] Stool 05/27/2024 11:2 2 AM WAREHOUSE PERSON 05/27/2024 10:11 PM WAREHOUSE PERSON Narrative [facility] - 06/01/2024 8:42 AM WAREHOUSE PERSON Specimen received in Culture and Sensitivity Stool Transport Vial Testing performed by [facility] ([phone]). Routine stool cultures include procedures to detect Salmonella, Shigella, Edwardsiella, Aeromonas, Pleisiomonas, Campylobacter, Yersinia, E. coli O157, and Shiga-like toxins. Vibrio is cultured only upon special request. If Vibrio is suspected, please call the laboratory at [phone]. Interpretive data was last updated August 20, 2016. Lilian Anthony MD LAB MICROBIOLO GY - GENERAL ORDERABLES Final Result [facility] [address] Department [place] [address] * US Abdomen Complete (05/27/2024 10:12 AM WAREHOUSE PERSON) Anatomical Region Laterality Modality Abdomen N/A Ultrasound 05/27/2024 10:4 1 AM WAREHOUSE PERSON Impressions 05/27/2024 10:41 AM WAREHOUSE PERSON Unremarkable abdominal sonogram study. Prior cholecystectomy. No evidence of chronic renal parenchymal disease Electronically signed by: Nick Borges M.D. Narrative 05/27/2024 10:41 AM WAREHOUSE PERSON EXAMINATION: US ABDOMEN COMPLETE DATE: 05/27/2024 9:15 [...] chronic renal parenchymal disease Electronically signed by: Nikc Borges M.D. us Lilian Anthony MD [facility] US PROCEDU RES Final Result * eGFR (05/19/2024 2:41 PM WAREHOUSE PERSON) eGFR >90 >=60 mL/min/1. 73 m2 Comment: [...] last reviewed 2021. Blood 05/19/2024 2:41 PM WAREHOUSE PERSON 05/19/2024 6:21 PM WAREHOUSE PERSON us Lilian Anthony MD LAB BLOOD LARISSA BOURGEOIS Final Result [facility] [address] Department [place] [address] * Differential, auto (05/19/2024 2:41 PM WAREHOUSE PERSON) Neutrophil abs 3.7 1.5 - 6.5 K/cumm Imm gran abs 0.0 0.0 - 0.1 K/cumm [facility] Lymphocyte abs 1.8 0.8 - 3.3 K/cumm [facility] Monocyte abs 0.4 0.2 - 0.8 K/cumm [facility] Eosinophil abs 0.1 0.0 - 0.5 K/cumm [facility] Basophil abs 0.1 0.0 - 0.1 K/cumm [facility] Neutrophil pct 61.7 % [facility] Comment: Interpretive Data Percent cell count reference ranges are not reported, since discordance with absolute values may lead to misinterpretation of CBC data. Current Interpretive Data was last revised on 2017. Imm gran pct 0.2 % [facility] Comment: Interpretive Data Percent cell count reference ranges are not reported, since discordance with absolute values may lead to misinterpretation of CBC data. Current Interpretive Data was last revised on 2017. Lymphocyte pct 30.1 % [facility] Comment: Interpretive Data Percent cell count reference ranges are not reported, since discordance with absolute values may lead to misinterpretation of CBC data. Current Interpretive Data was last revised on 2017. Monocyte pct 6.0 % [facility] Comment: Interpretive Data Percent cell count reference ranges are not reported, since discordance with absolute values may lead to misinterpretation of CBC data. Current Interpretive Data was last revised on 2017. Eosinophil pct 1.2 % [facility] Comment: Interpretive Data Percent cell count reference ranges are not reported, since discordance with absolute values may lead to misinterpretation of CBC data. Current Interpretive Data was last revised on 2017. Basophil pct 0.8 % [facility] Comment: Interpretive Data Percent cell count reference ranges are not reported, since discordance with absolute values may lead to misinterpretation of CBC data. Current Interpretive Data was last revised on 2017. Blood 05/19/2024 2:41 PM WAREHOUSE PERSON 05/19/2024 6:00 PM WAREHOUSE PERSON Lilian Anthony MD LAB BLOOD ORDE BK Final Result [facility] [address] [address] [facility] [place] [address] * Thyroid Function Adams (05/19/2024 2:41 PM WAREHOUSE PERSON) Pathologist [facility] TSH 1.26 0.30 - 4.20 mcIUnit/mL Blood 05/19/2024 2:41 PM WAREHOUSE PERSON 05/19/2024 6:00 PM WAREHOUSE PERSON Lilian Anthony MD LAB BLOOD ORDLester BOURGEOIS Final Result Performing Organization Address City/[facility] Co de Phone Number [facility] [address] [address] [facility] [place] [address] * CBC with auto differential (05/19/2024 2:41 PM WAREHOUSE PERSON) WBC 6.0 3.8 - 9.9 K/cumm Hgb [...] K/cumm [facility] Blood 05/19/2024 2:41 PM WAREHOUSE PERSON 05/19/2024 6:00 PM WAREHOUSE PERSON Lilian Anthony MD LAB BLOOD ORDE RABLES Final Result Performing Organization Address City/[facility]/ZIP Co de Phone Number [facility] [address] [facility] [place] [address] * Tissue transglutaminase IgA (TGG-IgA Ab) (05/19/2024 2:41 PM WAREHOUSE PERSON) TTG ab, IgA <0.5 <=14.9 units/mL Comment: Interpretive data Negative: <15 units/mL Positive: > or equal to 15 units/mL Current interpretive data was last revised on 2016. Testing performed by: [facility], [address] [place] [address]., [address] Blood 05/19/2024 2:41 PM WAREHOUSE PERSON 05/19/2024 10:01 PM WAREHOUSE PERSON Lilian Anthony MD LAB BLOOD ORDE RABLES Final Result Performing Organization Address [facility] Co de Phone Number [facility] [address] [address] [facility] [place] [address] * Tissue transglutaminase, IgG (TGG-IgG Ab) (05/19/2024 2:41 PM WAREHOUSE PERSON) TTG ab, IgG <0.8 <=14.9 units/mL Comment: Interpretive data Negative: <15 units/mL Positive: > or equal to 15 units/mL Current interpretive data was last revised on 2016. Testing performed by: [facility], [address] [place]., [address] Blood 05/19/2024 2:41 PM WAREHOUSE PERSON 05/19/2024 10:01 PM WAREHOUSE PERSON Lilian Anthony MD LAB BLOOD ORDE RABLES Final Result Performing Organization Address City/[facility]/ZIP Co de Phone Number [facility] [address] [facility] [place] [address] * Hemoglobin A1c (05/19/2024 2:41 PM WAREHOUSE PERSON) Hgb A1C 4.9 4.0 - 5.6 % Estimated Average Glucose 94 mg/dL [facility] Comment: The ADA recommends reporting an estimated Average Glucose (eAG) with all Hemoglobin A1c results using the equation derived from a study of 507 normal and diabetic adults. Minority populations were underrepresented and children were not included. (Diabetes Care 31:2234-1697, 2008). The eAG is not equivalent to a fasting glucose. Blood 05/19/2024 2:41 PM WAREHOUSE PERSON 05/19/2024 6:00 PM WAREHOUSE PERSON Lilian Anthony MD LAB BLOOD ORDE BK Final Result [facility] [address] Department [place] [address] * Comprehensive metabolic panel (05/19/2024 2:41 PM WAREHOUSE PERSON) Pathologist [facility] Sodium 139 135 - 145 mmol/L Potassium, pl 3.9 3.3 - 4.9 mmol/L [facility] Chloride 103 97 - 110 mmol/L [facility] CO2 22 22 - 32 mmol/L [facility] Anion gap 14 2 - 15 mmol/L [facility] BUN 20 6 - 25 mg/dL [facility] Creatinine 0.98 0.80 - 1.30 mg/dL [facility] Glucose 86 70 - 199 mg/dL [facility] Comment: Interpretive Data Fasting glucose >/= 126 [...] Units/L [facility] Blood 05/19/2024 2:41 PM WAREHOUSE PERSON 05/19/2024 6:00 PM WAREHOUSE PERSON Lilian Anthony MD LAB BLOOD LARISSA BOURGEOIS Final Result [facility] [address] Department [place] [address] from Last 3 Months Insurance [facility] H[facility]/PPO Address: [place] [address] [employer] Care Teams J2Ee Android Developer Relationship Specialty [place] [address] [facility] [address] [place] [address] PCP - General Family Medicine 05/19/24
--- OUTSIDE RECORDS SUMMARY | 2024-08-12 16:38 | XMS_ITS | Encounter Summary ---
Author Organization [facility] Address [address] [place] [address] Care Team Providers Care Plate Maker Zinc Name Role Phone Unavailable Primary Care Provider Unavailabl e Encounter Details Date Type Department Care Team (Late st Contact Info) Description 07/01/2024 Lab Requisition [facility] Laboratory Services [address] [place] [address] Social History Tobacco Use Types [...]
--- OUTSIDE RECORDS SUMMARY | 2024-08-12 16:38 | XMS_ITS | Encounter Summary ---
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
--- OUTSIDE RECORDS SUMMARY | 2024-08-12 16:38 | XMS_ITS | Encounter Summary ---
Author Organization [facility] Address [address] [place] [address] Care Team Providers Care Land Surveying Party Chief Name Role Phone Unavailable Primary Care Provider Unavailabl e Encounter Details Date Type Department Care Team (Late st Contact Info) Description 07/01/2024 Lab Requisition [facility] Laboratory Services [address] [place] [address] [place] [address] [place] [address] Social History Tobacco Use Types [...] CHEMISTRY ORDERABLES Final Result Performing Organization Address City/[facility]/ZIP Co de Phone Number [facility] CLIA# [id number] [place] [address] * EXPOSURE PANEL COMPLETION (06/30/2024 5:15 PM CDT) [facility] EXPOSURE PANEL RECEIVED Yes 07/01/2024 9:57 AM CDT [facility] Blood Collection / Unknown 06/30/2024 5:15 PM CDT 07/01/2024 9:53 AM CDT Ghada Leonor [place] CHEMISTRY ORDERABLES Final Result Performing Organization Address [facility] Co de Phone Number [facility] [id number] [place] [address] * HEPATITIS C ANTIBODY W REFLEX (06/30/2024 5:15 PM CDT) [facility] HEPATITIS C AB NON-REACT NANCI Non-react nanci 07/01/2024 1:21 PM CDT [facility] Comment:Antibodies to HCV we re not detected, does not exclude the possibility of exposure to HCV. Blood Collection / Unknown 06/30/2024 5:15 PM CDT 07/01/2024 9:53 AM CDT Ghada Leonor [place] CHEMISTRY ORDERABLES Final Result Performing Organization Address City/[facility]/ZIP Co de Phone Number [facility] [employer] [facility] CLIA# [id number] [place] [address] * HIV DETECTION W/REFLX CONFIRMATION (06/30/2024 5:15 PM CDT) [facility] HIV-1 AND 2 ABS AND HIV-1 AG Non-reacti ve Non-reacti ve 07/01/2024 3:29 PM CDT [facility] Blood Collection / Unknown 06/30/2024 5:15 PM CDT 07/01/2024 9:53 AM CDT Ghada Galvez DO CHEMISTRY ORDERABLES Final Result Performing Organization Address [facility] Co de Phone Number [facility] LABORATORY SERVICES [facility]# [id number] [address] [place] [address] documented in this encounter Visit Diagnoses Not on filedocumented in this encounter
--- OUTSIDE RECORDS SUMMARY | 2024-08-12 16:38 | XMS_ITS | Clinical Summary ---
Author Organization [facility] Address [address] Duong: Epic Prelude ADT [place] [address] Care Team Providers Care Vice President Integrated Name Role Phone Unavailable Primary Care Provider Unavailabl e Encounters Date Type Department Care Team Description 07/01/2024 Lab Requisition [facility] Laboratory Services [address] [place] [address] 07/01/2024 Lab Requisition [facility] Services [address] [place] [address] Ghada Galvez DO from Last [...] EXPOSURE PANEL COMPLETION (06/30/2024 5:15 PM CDT) [facility] EXPOSURE PANEL RECEIVED Yes 07/01/2024 9:57 AM CDT [facility] Blood Collection / Unknown 06/30/2024 5:15 PM CDT 07/01/2024 9:53 AM CDT Ghada Galvez DO CHEMISTRY ORDERABLES Final Result [facility] CLIA# [id number] [address] [place] [address] * EXTRA TUBE (SST/GOLD) (06/30/2024 5:15 PM CDT) Blood 06/30/2024 5:15 PM CDT 07/01/2024 9:56 AM CDT [facility] CHEMISTRY ORDERABLES Final Result Performing Organization Address [facility]/ZIP Co de Phone Number [facility] CLIA# [id number] [place] [address] * HIV DETECTION W/REFLX CONFIRMATION (06/30/2024 5:15 PM CDT) [facility] HIV-1 AND 2 ABS AND HIV-1 AG Non-reacti ve Non-reacti ve 07/01/2024 3:29 PM CDT [facility] Blood Collection / Unknown 06/30/2024 5:15 PM CDT 07/01/2024 9:53 AM CDT [facility] Gal[facility] DO CHEMISTRY ORDERABLES Final Result Performing Organization Address City/[facility]/ZIP Co de Phone Number [facility] CLIA# [id number] [address] [place] [address] * HEPATITIS C ANTIBODY W REFLEX (06/30/2024 5:15 PM CDT) HEPATITIS C AB NON-REACT NANCI Non-react nanci 07/01/2024 1:21 PM CDT [facility] LABORATORY SERVICES [facility] Comment:Antibodies to HCV we re not detected, does not exclude the possibility of exposure to HCV. Blood Collection / Unknown 06/30/2024 5:15 PM CDT 07/01/2024 9:53 AM CDT us Ghada Galvez DO CHEMISTRY ORDERABLES Final Result [facility] CLIA# [id number] [address] [place] [address] from Last 3 Months Insurance [facility]
[2024-08-12 18:18] VITALS: BP 128/62; PULSE 63; RESP 16
[2024-08-12] MEDS: TETANUS,DIPHTHERIA,AC PERTUSSIS ADULT (0.5 ML) BOOSTRIX IM (18:18)
== END 2024-08-12 18:18 | disposition home or self-care (01) ==
PROVIDERS: Emergency Provider Emergency Medicine
DX: S02.2XXA Fracture of nasal bones, initial encounter for closed fracture (principal); S01.81XA Laceration without foreign body of other part of head, initial encounter; S01.112A Laceration without foreign body of left eyelid and periocular area, initial encounter; Z23 Encounter for immunization; V18.4XXA Pedal cycle driver injured in noncollision transport accident in traffic accident, initial encounter; Y93.55 Activity, bike riding
CPT/HCPCS: 12013; 70450; 70486; 72125; 90471; 90715; 99283; 99284; A9270